=== PATIENT | female | born 1955 | race Caucasian/White ===

== ENCOUNTER → 2016-12-17 | Outpatient (CLI) | payer OTHER ==
--- NOTE | 2016-12-17 18:03 | MG ---
Examination: Bilateral screening mammogram. Clinical history: Routine screening. Technique: Digital CC and MLO views of both breasts were obtained. Computer aided detection analysis was performed and used during the interpretation. Comparison: 12/22/2012. Findings: The breasts are composed of scattered fibroglandular densities. Benign-appearing calcifications are n oted in the breasts bilaterally. Skin moles are present overlying the right breast. No suspicious mass, area of architectural distortion or suspicious cluster of microcalcifications is noted. Impression: 1. No mammographic evidence of malignancy. BI-RADS category 2-benign findings. Recommend routine annual screening mammogram. Diagnostic CAD was utilized and reviewed. * 0 (ZERO) - ASSESSMENT INCOMPLETE; ADDITIONAL IMAGING IS NEEDED. * 0C - ASSESSMENT INCOMPLETE, NEEDS ADDITIONAL IMAGING EVALUATION AND/OR PRIOR MAMMOGRAMS FOR COMPARI SON. * 1/1 (ONE) - NEGATIVE. * 2/II (TWO) - BENIGN FINDINGS. * 3/III (THREE) - PROBABLY BENIGN FINDING; SHORT INTERVAL FOLLOW-UP SUGGESTED. * 4/IV (FOUR) - SUSPICIOUS ABNORMALITY; BIOPSY SHOULD BE CONSIDERED. * 5/V - HIGHLY SUSPICIOUS OF MALIGNANCY; BIOPSY SHOULD BE PERFORMED. * 6/ - KNOWN BIOPSY PROVEN MALIGNANCY-APPROPRIATE ACTION SHOULD BE TAKEN. A NEGATIVE X-RAY REPORT SHOULD NOT DELAY BIOPSY IF A DOMINANT OR CLINICALLY SUSPICIOUS MASS IS PRESENT; 4 TO 8 PERCENT OF CANCERS ARE NOT IDENTIFIED BY X-RAY. A NEGATIVE REPORT MAY REINFORCE THE CLINICAL IMPRESSION. ADENOSIS AND DENSE BREASTS MAY OBSCURE AN UNDERLYING NEOPLASM. Reported By:
== END ==
LOC: RAD 15:16
PROVIDERS: ATTEND Obstetrics & Gynecology Obstetrics
DX: Z12.31 Encounter for screening mammogram for malignant neoplasm of breast (principal)
CPT/HCPCS: 77067

== ENCOUNTER → 2017-08-13 | Outpatient (CLI) | payer SELFPAY ==
--- NOTE | 2017-08-13 12:13 | CT ---
Examination: CT of the abdomen and pelvis without contrast. Clinical History: Unspecified renal cough, left lower quadrant pain and left flank pain. Technique: Multiple axial images were obtained from the lung bases down to the pubic symphysis. No or al or intravenous contrast was administered. Dose reduction techniques including automated exposure c ontrol (AEC) and adjustment of mA and kV were utilized. Comparison: None available. Findings: The visualized portion of the lung bases is unremarkable. No acute urinary tract obstruction is noted. No renal, ureteral or bladder calculus is noted. The kid neys are normal in appearance, with no renal mass or hydronephrosis noted. The liver, spleen, pancreas, gallbladder and adrenal glands are normal in appearance. The abdominal aorta is mildly calcified and tortuous, but is normal in caliber. The bowel gas pattern is non-obstructive. There is no free air. There are scattered diverticula associated with the colon, with stranding of the mesenteric fat seen adjacent to the sigmoid portion of the colon, consistent with an acute diverticulitis. No associated diverticular abscess is identified. The small bowel is grossly unremarkable. The appendix is not visualized. The bladder is within normal limits. The uterus is surgically absent. No pelvic mass or fluid collection is noted. There is a mild lumbar scoliosis seen convex to the right, which may be positional in nature. Degener ative changes are noted in the spine. No acute osseous abnormality is noted. Impression: 1. Acute diverticulitis involving the sigmoid portion of the colon, as described above. No associated diverticular abscess is noted. 2. No acute urinary tract obstruction is noted. 3. There are postsurgical changes from a prior hysterectomy. Reported By:
== END | disposition home or self-care (01) | DRG 694 ==
LOC: RAD 11:20
PROVIDERS: ATTEND Obstetrics & Gynecology Obstetrics
DX: N23 Unspecified renal colic (principal); K57.32 Diverticulitis of large intestine without perforation or abscess without bleeding
CPT/HCPCS: 74176

== ENCOUNTER → 2017-08-17 | Outpatient (CLI) | payer SELFPAY ==
[2017-08-17 11:09] LABS: BASOPHILS # (AUTO) 0.1 X10^3/uL (0.0-0.1); BASOPHILS % (AUTO) 0.8 % (0.2-1.0); EOSINOPHILS # (AUTO) 0.1 x10^3/uL (0.0-0.2); EOSINOPHILS % (AUTO) 1.1 % (0.9-2.9); HEMATOCRIT 38.4 % (36.0-47.0); HEMOGLOBIN 13.4 g/dL (12.0-16.0); LYMPHOCYTES # (AUTO) 2.1 X10^3/uL (1.3-2.9); LYMPHOCYTES % (AUTO) 34.5 % (21.0-51.0); MEAN CORPUSCULAR HEMOGLOBIN 32.1 pg (27.0-34.0); MEAN CORPUSCULAR HGB CONC 34.9 g/dL (33.0-35.0); MEAN CORPUSCULAR VOLUME 92.1 fL (80.0-100.0); MEAN PLATELET VOLUME 8.1 fL (7.4-11.0); MONOCYTES # (AUTO) 0.4 x10^3/uL (0.3-0.8); MONOCYTES % (AUTO) 5.8 % (0.0-13.0); NEUTROPHILS # (AUTO) 3.5 x10^3/uL (2.2-4.8); NEUTROPHILS % (AUTO) 57.8 % (42.0-75.0); PLATELET COUNT 302 X10^3/uL (150.0-450.0); RED BLOOD COUNT 4.17 X10^6/uL (3.5-5.4); WHITE BLOOD COUNT 6.1 X10^3/uL (3.6-10.0)
[2017-08-17 11:30] LABS: ALANINE AMINOTRANSFERASE 21 Units/L (12-78); ALBUMIN 3.8 g/dL (3.4-5.0); ALKALINE PHOSPHATASE 69 Units/L (46-116); ASPARTATE AMINO TRANSFERASE 20 Units/L (15-37); BLOOD UREA NITROGEN 13 mg/dL (7-18); CALCIUM 9.4 mg/dL (8.5-10.1); CHLORIDE 101 mmol/L (98-107); COR NA(FOR HYPERGLY) 137 mmol/L (136-145); CREATININE 0.94 mg/dL (0.55-1.02); FREE T4 (FREE THYROXINE) 1.22 ng/dL (0.76-1.46); SODIUM 137 mmol/L (136-145); T4 (THYROXINE) 8.5 ug/dL (4.7-13.3); TOTAL PROTEIN 8.1 g/dL (6.4-8.2); TSH (3RD GENERATION) 1.755 uIU/mL (0.358-3.74); eGFR BLACK RACES > 60 (>60); eGFR NON BLACK RACES > 60 (>60)
[2017-08-17 11:44] LABS: ERYTHROCYTE SEDIMENTATION RATE 48 MM/HOUR (0-20)
== END ==
LOC: LAB 10:47
PROVIDERS: ATTEND Psychiatry & Neurology Neurology
DX: N63.21 Unspecified lump in the left breast, upper outer quadrant (principal); R10.32 Left lower quadrant pain; Z87.39 Personal history of other diseases of the musculoskeletal system and connective tissue; R70.0 Elevated erythrocyte sedimentation rate
CPT/HCPCS: 36415; 80053; 82306; 84436; 84439; 84443; 85025; 85652

== ENCOUNTER 2019-02-09 15:21 | Inpatient (IN) ==
[2019-02-09 15:27] VITALS: BMI 21.7
[2019-02-09] MEDS ORDERED: NS 1000 ML 1,000 ML IV ONE (16:56)
[2019-02-09 17:02] LABS: BILIRUBIN,URINE NEGATIVE (NEGATIVE); BLOOD/HEMOGLOBIN,URINE 5+ (NEGATIVE); GLUCOSE, URINE NEGATIVE (NEGATIVE); KETONES,URINE NEGATIVE (NEGATIVE); LEUKOCYTE ESTERASE ,URINE 3+ (NEGATIVE); NITRITES,URINE NEGATIVE (NEGATIVE); PROTEIN,URINE 3+ (NEGATIVE); UROBILINOGEN,URINE NORMAL (NORMAL)
--- NOTE | 2019-02-09 17:05 | DR.URINEF ---
HPI Time Seen Time Seen by Provider: 02/09/19 16:55 PCP Primary Care Physician: PAULINE DIANA NP Complaint Chief Complaint Doctors Comments: 63yo female presented for dysuria. Pt reports for the past 3wk having LLQ pain that is intermittent and today having worsening dysuria, increase frequency and suprapubic pain that radiates to left flank. Pt reports nausea/chills but denies any fever. Pain is sharp 10/10. She has colonoscopy [address] Davidson and hx of diverticulosis. Chief Complaint:: PT STATES THAT SHE WAS DIAGNOSED WITH DIVERTICULITIS A YEAR AGO. STATES SHE HAS BEEN HURTING 3 WEEKS BUT TODAY THE PAIN GOT WORSE. STATES WHEN SHE PEES IT FEELS LIKE "RAZOR BLADES". STATES THERE IS BLOOD IN HER URINE. Reviewed Nurses Notes Reviewed: Yes Source History Provided: Patient Mode of Arrival Mode of Arrival: Ambulatory Timing Onset of Chief Complaint: 02/09/19 Duration Duration: Constant Duration: Hours and Weeks Context Onset: Spontaneous History of: UTI Quality Pain is: Burning and Sharp Severity Pain: Moderate Location Pain Location: Suprapubic, Left and Flank Associated Signs and Symptoms Associated signs and symptoms: Nausea and Flank Pain PMH PMH Past Medical History: Yes Past Medical History: Hypertension Past Medical History Comment: DIVERTICULITIS Past Surgical History: Yes Surgical History: Hysterectomy Family History History of Family Medical Conditions: No Social History Does patient currently use any type of tobacco product: No Have you used tobacco products in the last 12 months: No Type of Tobacco Use: None Does any household member use tobacco: No Alcohol Use: None Do you use any recreational Drugs:: No Lives With: Family Lives Where: Home infectious screening In the last 2 months have you had wt loss of >10#?: NO Have you had fever, night sweats or hemotysis?: No Have you traveled outside the country in the last 6 months?: No Isolation: Standard ROS Review of Systems Constitutional: Chills; negative Fever, Weakness, Fatigue and Loss of Appetite Eyes: negative Blurred Vision ENTM: negative Nose Congestion Respiratoy: negative Short of Breath Cardiovascular: negative Chest Pain Gastrointestinal/Abdominal: Abdominal Pain, Nausea and Vomiting Genitourinary: Dysuria, Frequency and Hematuria Neurological: negative Weakness Musculoskeletal: negative Muscle Pain Integumentary: negative Rash Hematologic/Lymphatic: negative Lymphadenopathy Endocrine: negative Decreased Appetite Psychiatric: negative Depression All Other Systems: Reviewed and Negative PE Vital Signs Vitals: Temperature 98.6 F Pulse Rate 78 Respiratory Rate 18 Blood Pressure 138/67 O2 Sat by Pulse Oximetry 100 General Limitations: No Limitations Head Head Exam: Normal Inspection, Atraumatic and Normocephalic Eyes Eye exam: Normal Appearance, PERRL and EOMI; negative Scleral Icterus ENT ENT Exam: Normal Exam, Normal Oropharynx, Normal External Ear Exam and Mucous Membranes Moist Neck Neck Exam: Normal Inspection and Full ROM Respiratory Respiratory Exam: Normal Lung Sounds Bilat; negative Respiratory Distress Respiratory Exam: Bilateral: Clear to Auscultation Cardiovascular Cardiovascular Exam: Regular Rate and Normal Rhythm Abdominal Exam Abdominal Exam: Normal Inspection, Normal Bowel Sounds, Soft and Tenderness; negative Distention and Guarding Abdominal Tenderness: LLQ and Suprapubic Extremities Extremities Exam: Normal Inspection, Full ROM and Normal Capillary Refill; negative Edema Back Back Exam: Normal Inspection, Full ROM and (L) CVA Tenderness Neurologic Neurological Exam: Alert, Oriented X3, Normal Gait and Reflexes Normal; negative Motor Sensory Deficit Psychiatric Psychiatric Exam: Normal Affect and Normal Mood Skin Skin Exam: Warm, Dry, Intact and Normal Color MDM Additional Information Obtained Additional Information Obtained From: Old Records Differential Diagnosis Differential Diagnosis: Pyelonephritis, Urolithiasis and UTI COURSE Reevaluation 1st: Improved Consultation Consultation Comments: spoke to Dr. Johnson for admission, agreed with plan and will see in hospital. Education/Counseling Education/Counseling: Patient, Education and Counseling Educated On: Treatment, Diagnosis, Prognosis and Needs for Follow Up (pcp) ROR Labs Reviewed Laboratory Results Reviewed?: Yes Result Diagrams: 02/09/19 17:00 02/09/19 17:00 Laboratory: WBC 16.3 X10^3/uL (3.6-10.0) H 02/09/19 17:00 RBC 4.61 X10^6/uL (3.5-5.4) 02/09/19 17:00 Hgb 14.8 g/dL (12.0-16.0) 02/09/19 17:00 Hct 43.0 % (36.0-47.0) 02/09/19 17:00 MCV 93.3 fL (80.0-100.0) 02/09/19 17:00 MCH 32.1 pg (27.0-34.0) 02/09/19 17:00 MCHC 34.4 g/dL (33.0-35.0) 02/09/19 17:00 RDW 13.2 % (11.6-16.5) 02/09/19 17:00 Plt Count 265 X10^3/uL (150.0-450.0) 02/09/19 17:00 Plt Count Comment Adequate (ADEQUATE) 02/09/19 17:00 MPV 8.0 fL (7.4-11.0) 02/09/19 17:00 Neut % (Auto) 80.6 % (42.0-75.0) H 02/09/19 17:00 Lymph % (Auto) 13.4 % (21.0-51.0) L 02/09/19 17:00 [place] % (Auto) 5.3 % (0.0-13.0) 02/09/19 17:00 Eos % (Auto) 0.4 % (0.9-2.9) L 02/09/19 17:00 Baso % (Auto) 0.3 % (0.2-1.0) 02/09/19 17:00 Neut # (Auto) 13.1 x10^3/uL (2.2-4.8) H 02/09/19 17:00 Lymph # (Auto) 2.2 X10^3/uL (1.3-2.9) 02/09/19 17:00 [place] # (Auto) 0.9 x10^3/uL (0.3-0.8) H 02/09/19 17:00 Eos # (Auto) 0.1 x10^3/uL (0.0-0.2) 02/09/19 17:00 Baso # (Auto) 0.0 X10^3/uL (0.0-0.1) 02/09/19 17:00 Absolute Nucleated RBC 0.1 /100WBC 02/09/19 17:00 Plt Morphology Comment Normal (NORMAL) 02/09/19 17:00 RBC Morphology Normal (NORMAL) 02/09/19 17:00 Sodium 138 mmol/L (136-145) 02/09/19 17:00 Corrected Sodium TNP 02/09/19 17:00 Potassium 3.8 mmol/L (3.5-5.1) 02/09/19 17:00 Chloride 100 mmol/L (98-107) 02/09/19 17:00 Carbon Dioxide 26.1 mmol/L (21-32) 02/09/19 17:00 BUN 14 mg/dL (7-18) 02/09/19 17:00 Creatinine 1.01 mg/dL (0.55-1.02) 02/09/19 17:00 Est GFR (MDRD) Af Amer > 60 (>60) 02/09/19 17:00 Est GFR (MDRD) Non-Af 59 (>60) 02/09/19 17:00 Glucose 97 mg/dL (65-99) 02/09/19 17:00 Calcium 10.7 mg/dL (8.5-10.1) H 02/09/19 17:00 Specimen Type Clean catch urine 02/09/19 16:53 Urine Color [place] (YELLOW) 02/09/19 16:53 Urine Appearance Cloudy (CLEAR) 02/09/19 16:53 Urine pH 8.0 (5.0 - 8.0) 02/09/19 16:53 Ur Specific [place] 1.015 (1.000-1.030) 02/09/19 16:53 Urine Protein 3+ (NEGATIVE) 02/09/19 16:53 Urine Glucose (UA) Negative (NEGATIVE) 02/09/19 16:53 Urine Ketones Negative (NEGATIVE) 02/09/19 16:53 Urine Occult Blood 5+ (NEGATIVE) 02/09/19 16:53 Urine Nitrite Negative (NEGATIVE) 02/09/19 16:53 Urine Bilirubin Negative (NEGATIVE) 02/09/19 16:53 Urine Urobilinogen Normal (NORMAL) 02/09/19 16:53 Ur Leukocyte Esterase 3+ (NEGATIVE) 02/09/19 16:53 Urine RBC Tntc /HPF (0-3) A 02/09/19 16:53 Urine WBC 30-50 /HPF (0-5) A 02/09/19 16:53 Ur Squamous Epith Cells Rare /HPF (NEGATIVE) 02/09/19 16:53 Urine Bacteria Trace /HPF (NEGATIVE) 02/09/19 16:53 Ur Culture Indicated? Yes/culture set up 02/09/19 16:53 Other Results Comments: WBC 16K with left shift, Hb 14.8 UA WBC 30-50 RBC TNTC BMP Cr 1.[address] a/p: Cystitis/sigmoid diverticulitis XRAY XRAY Interpreted by: Radiologist Opioid Opioid Risk Tool Total: 0 Total Score Risk Category: Low Risk Copyright: Raymond FLORES predicting aberrant behaviors Diagnosis Discharge Problem: Urinary tract infection with hematuria, Diverticulitis of sigmoid colon, Hypercalcemia Instructions Forms: Excuse From Work Patient Portal ADDITIONAL NOTES Additional Notes Additional Notes: I have personally reviewed your medications, lab results, imaging and time was spent discussion results. Patient educated on their health issue. They verbalized their understanding and agreed with plan of care. Condition: Stable Disposition: Admission
[2019-02-09 17:11] LABS: APPEARANCE,URINE CLOUDY (CLEAR); COLOR,URINE PINK (YELLOW); RBC,URINE TNTC /HPF (0-3); SQUAMOUS EPITHELIAL CELL,UR RARE /HPF (NEGATIVE)
[2019-02-09 17:12] LABS: BACTERIA,URINE TRACE /HPF (NEGATIVE)
[2019-02-09] MEDS ORDERED: ROCEPHIN VIAL 1 GRAM IM ONE (17:17)
[2019-02-09 17:18] LABS: BASOPHILS % (AUTO) 0.3 % (0.2-1.0); EOSINOPHILS # (AUTO) 0.1 x10^3/uL (0.0-0.2); EOSINOPHILS % (AUTO) 0.4 % (0.9-2.9); HEMOGLOBIN 14.8 g/dL (12.0-16.0); LYMPHOCYTES # (AUTO) 2.2 X10^3/uL (1.3-2.9); LYMPHOCYTES % (AUTO) 13.4 % (21.0-51.0); MEAN CORPUSCULAR HEMOGLOBIN 32.1 pg (27.0-34.0); MEAN CORPUSCULAR HGB CONC 34.4 g/dL (33.0-35.0); MEAN CORPUSCULAR VOLUME 93.3 fL (80.0-100.0); MONOCYTES # (AUTO) 0.9 x10^3/uL (0.3-0.8); MONOCYTES % (AUTO) 5.3 % (0.0-13.0); NEUTROPHILS # (AUTO) 13.1 x10^3/uL (2.2-4.8); NEUTROPHILS % (AUTO) 80.6 % (42.0-75.0); PLATELET COUNT 265 X10^3/uL (150.0-450.0); RED BLOOD COUNT 4.61 X10^6/uL (3.5-5.4); RED CELL DISTRIBUTION WIDTH 13.2 % (11.6-16.5); WHITE BLOOD COUNT 16.3 X10^3/uL (3.6-10.0)
[2019-02-09] MEDS ORDERED: NS 1000 ML 1,000 ML ONE (17:19)
[2019-02-09] MEDS ORDERED: ROCEPHIN VIAL 1 GRAM ONE (17:19)
[2019-02-09] MEDS ORDERED: NS 100 ML IV + SPIKE MINIBAG* 100 ML IV ONE (17:19)
[2019-02-09 17:21] LABS: BLOOD UREA NITROGEN 14 mg/dL (7-18); CALCIUM 10.7 mg/dL (8.5-10.1); CARBON DIOXIDE 26.1 mmol/L (21-32); CHLORIDE 100 mmol/L (98-107); CREATININE 1.01 mg/dL (0.55-1.02); SODIUM 138 mmol/L (136-145); eGFR NON BLACK RACES 59 (>60)
[2019-02-09 17:38] LABS: PLATELET MORPHOLOGY COMMENT NORMAL (NORMAL)
[2019-02-09] MEDS ORDERED: MORPHINE SULFATE INJ 4 MG IVP ONE (17:43)
[2019-02-09] MEDS ORDERED: ZOFRAN INJ 4 MG VIAL IVP ONE (17:43)
[2019-02-09] MEDS ORDERED: ROCEPHIN VIAL 1 GRAM 1 G in NS 100 ML IV + SPIKE MINIBAG* 100 ML IV ONE (18:01)
[2019-02-09] MEDS ORDERED: ZOFRAN INJ 4 MG VIAL ONE (18:02)
[2019-02-09] MEDS ORDERED: MORPHINE SULFATE INJ 4 MG ONE (18:03)
--- NOTE | 2019-02-09 18:30 | CT ---
CT ABDOMEN AND PELVIS WITH IV CONTRAST CLINICAL HISTORY: 63-year-old female with severe abdominal pain and UTI. COMPARISON: CT abdomen and pelvis 08/13/2017. TECHNIQUE: Multiple contiguous axial images of the abdomen and pelvis were obtained following the administration of IV contrast. Coronal and sagittal reformatted imaging was submitted. Dose reduction techniques including Automated Exposure Control (AEC) and adjustment of mA and kV were utilized. FINDINGS: The lung bases are clear without pulmonary nodules, masses, or pleural fluid collections. The inferior imaged mediastinum and heart is normal in size and there is no pericardial effusion. Chronic hepatomegaly without mass lesion or biliary ductal dilatation. No hepatic steatosis. Spleen, pancreas and gallbladder are unremarkable. The adrenal glands are normal bilaterally. Stable bilateral simple renal cysts. The kidneys perfuse in a normal fashion and the ureters run in an unobstructed course to a moderately distended urinary bladder. No nephroureterolithiasis or hydroureteronephrosis. Bladder is diffusely thick-walled and mildly inflamed with enhancing mucosa. Status post hysterectomy. Vaginal cuff and adnexa unremarkable. Multiple pelvic phleboliths. Appendix not visualized, no pericecal inflammatory change. Short segment of circumferential bowel wall thickening with mucosal enhancement surrounding inflammation of the proximal sigmoid colon in the setting of diverticular disease without free air free fluid. The remaining bowel is without obstruction or inflammation. There are no pathologically enlarged lymph nodes in the abdomen or pelvis. The arteriovascular structures are within normal limits. Soft tissues are normal. The osseous structures are intact without fracture or malalignment. IMPRESSION: 1. It should be noted that definitive exclusion of pyelonephritis requires delayed imaging. Otherwise no evidence of pyelonephritis, correlate clinically. 2. Diffuse bladder wall thickening and inflammation with mucosal enhancement consistent with cystitis in a patient with UTI. Correlate clinically. 3. Sigmoid diverticulitis, uncomplicated without perforation or abscess. 4. Other chronic findings as above. Reported By:
[2019-02-09] MEDS ORDERED: FLAGYL IV PREMIX 500 MG BAG 500 MG/100 ML BAG IV ONE ×2 (18:56→19:00)
[2019-02-09] MEDS ORDERED: ZESTRIL TAB 5 MG PO SCH (20:13)
[2019-02-09] MEDS ORDERED: ROCEPHIN VIAL 1 GRAM 1 G in NS 100 ML IV + SPIKE MINIBAG* 100 ML IV SCH (21:00)
[2019-02-09] MEDS ORDERED: FLAGYL IV PREMIX 500 MG BAG 500 MG/100 ML BAG IV SCH (21:00)
[2019-02-09] MEDS: ZESTRIL TAB 5 MG PO SCH (21:31)
[2019-02-09] MEDS: NS 1000 ML 1,000 ML IV SCH (21:33)
[2019-02-09] MEDS: TYLENOL 325 MG TAB PO PRN (22:30)
[2019-02-10] MEDS ORDERED: NORCO 5/325 MG TAB ONE (02:41)
[2019-02-10] MEDS: NORCO 5/325 MG TAB PO PRN ×2 (02:41→08:12)
[2019-02-10 05:44] LABS: BASOPHILS % (AUTO) 0.3 % (0.2-1.0); EOSINOPHILS # (AUTO) 0.1 x10^3/uL (0.0-0.2); EOSINOPHILS % (AUTO) 1.7 % (0.9-2.9); HEMATOCRIT 36.3 % (36.0-47.0); LYMPHOCYTES # (AUTO) 2.6 X10^3/uL (1.3-2.9); LYMPHOCYTES % (AUTO) 29.9 % (21.0-51.0); MEAN CORPUSCULAR HEMOGLOBIN 32.5 pg (27.0-34.0); MEAN CORPUSCULAR HGB CONC 34.3 g/dL (33.0-35.0); MEAN CORPUSCULAR VOLUME 94.8 fL (80.0-100.0); MEAN PLATELET VOLUME 7.7 fL (7.4-11.0); MONOCYTES # (AUTO) 0.7 x10^3/uL (0.3-0.8); MONOCYTES % (AUTO) 7.5 % (0.0-13.0); NEUTROPHILS # (AUTO) 5.3 x10^3/uL (2.2-4.8); NEUTROPHILS % (AUTO) 60.6 % (42.0-75.0); PLATELET COUNT 219 X10^3/uL (150.0-450.0); RED BLOOD COUNT 3.83 X10^6/uL (3.5-5.4); RED CELL DISTRIBUTION WIDTH 13.4 % (11.6-16.5); WHITE BLOOD COUNT 8.7 X10^3/uL (3.6-10.0)
[2019-02-10 05:51] LABS: HEMOGLOBIN 12.4 g/dL (12.0-16.0)
[2019-02-10 05:54] LABS: BLOOD UREA NITROGEN 11 mg/dL (7-18); CALCIUM 8.9 mg/dL (8.5-10.1); CARBON DIOXIDE 27.9 mmol/L (21-32); CHLORIDE 106 mmol/L (98-107); CREATININE 1.03 mg/dL (0.55-1.02); SODIUM 140 mmol/L (136-145); eGFR NON BLACK RACES 58 (>60)
[2019-02-10] MEDS: FLAGYL IV PREMIX 500 MG BAG 500 MG/100 ML BAG IV SCH ×3 (06:23→22:00)
[2019-02-10] MEDS: ROCEPHIN VIAL 1 GRAM 1 G in NS 100 ML IV + SPIKE MINIBAG* 100 ML IV SCH (09:12)
[2019-02-10] MEDS: NS 1000 ML 1,000 ML IV SCH ×3 (09:14→22:00)
[2019-02-10] MEDS ORDERED: OFIRMEV IV 1000 MG VIAL 500 MG/50 ML VIAL IV PRN (10:26)
[2019-02-10] MEDS: TYLENOL 325 MG TAB PO PRN ×2 (13:58→21:35)
[2019-02-10] MEDS: COLACE CAP 100 MG PO SCH (13:59)
--- NOTE | 2019-02-10 16:23 | DR.H&P ---
H&P - History & Physical for Day of: H&P Date: 02/09/19 - Chief Complaint Chief Complaint: ABDOMINAL PAIN, N/V FEVER - History of Present Illness History of Present Illness: PT IS 63 WF ER ADMISSION AFTER PRESENTING WITH CO ABDOMINAL PAIN, ELEVATED WBC, CT ABD PELVIS REVEALED: Sigmoid diverticulitis, uncomplicated without perforation or abscess. PT ADMITTED FOR TREATMENT OF ACUTE ILLNESS - Past Medical History Past Medical History: Hypertension - Past Surgical History Surgical History: Hysterectomy - Social History Does patient currently use any type of tobacco product: No Have you used tobacco products in the last 12 months: No Type of Tobacco Use: None Does any household member use tobacco: No Alcohol Use: None Drug Use: None - Medications Home Medications: No Known Drug Allergies Allergy (Verified 02/03/18 07:30) - Review of Systems Constitutional: Weakness ENT: No Symptoms Reported Cardiovascular: No Symptoms Reported Gastrointestinal: Nausea, Vomiting, Abdominal Pain Genitourinary: Hematuria Musculoskeletal: Back Pain Skin: No Symptoms Reported Neurological: No Symptoms Reported - Physical Exam Vital Signs: Temperature 98.6 F Pulse Rate [Left Brachial] 65 Pulse Rate 78 Respiratory Rate 18 Blood Pressure [Left Arm] 122/68 Blood Pressure 138/67 O2 Sat by Pulse Oximetry 99 Oriented: Normal Eyes: Normal Ear: Normal Nose: Normal Throat: Normal Respiratory: Clear Throughout Cardiovascular: Normal : Normal Auscultation: Bowel Sounds: Normal Palpation: Normal Tenderness: Diffuse, LUQ, LLQ, Epigastric Skin: Normal Musculoskeletal: Normal Psychiatric: Anxiety Affect: Anxious Speech Pattern: Clear, Appropriate - Assessment/Plan (1) Diverticulitis of sigmoid colon Status: Acute Plan: ADMIT, IV ATBX THERAPY. IV PAIN CONTROL, IV HYDRATION. AM LABS, CONSULT DR BRUNNER (2) Hypercalcemia Status: Acute (3) Urinary tract infection with hematuria Qualifiers: Urinary tract infection type: acute cystitis Qualified Code(s): N30.01 - Acute cystitis with hematuria Status: Acute - Allergies Allergies/Adverse Reactions: Allergies Allergy/AdvReac Type Severity Reaction Status Date / Time No Known Drug Allergies Allergy Verified 02/03/18 07:30
[2019-02-10] MEDS: ZESTRIL TAB 5 MG PO SCH (21:37)
[2019-02-11] MEDS ORDERED: ZOFRAN TAB 4 MG SL PRN (04:03)
[2019-02-11] MEDS ORDERED: ZOFRAN TAB 4 MG ONE (04:10)
[2019-02-11 05:43] LABS: BASOPHILS # (AUTO) 0.1 X10^3/uL (0.0-0.1); BASOPHILS % (AUTO) 0.9 % (0.2-1.0); EOSINOPHILS # (AUTO) 0.2 x10^3/uL (0.0-0.2); EOSINOPHILS % (AUTO) 2.7 % (0.9-2.9); HEMATOCRIT 36.6 % (36.0-47.0); HEMOGLOBIN 12.6 g/dL (12.0-16.0); LYMPHOCYTES # (AUTO) 2.4 X10^3/uL (1.3-2.9); LYMPHOCYTES % (AUTO) 30.5 % (21.0-51.0); MEAN CORPUSCULAR HEMOGLOBIN 32.8 pg (27.0-34.0); MEAN CORPUSCULAR HGB CONC 34.4 g/dL (33.0-35.0); MEAN CORPUSCULAR VOLUME 95.5 fL (80.0-100.0); MEAN PLATELET VOLUME 8.7 fL (7.4-11.0); MONOCYTES # (AUTO) 0.5 x10^3/uL (0.3-0.8); MONOCYTES % (AUTO) 6.2 % (0.0-13.0); NEUTROPHILS # (AUTO) 4.7 x10^3/uL (2.2-4.8); NEUTROPHILS % (AUTO) 59.7 % (42.0-75.0); PLATELET COUNT 188 X10^3/uL (150.0-450.0); RED BLOOD COUNT 3.83 X10^6/uL (3.5-5.4); RED CELL DISTRIBUTION WIDTH 13.3 % (11.6-16.5); WHITE BLOOD COUNT 7.8 X10^3/uL (3.6-10.0)
[2019-02-11 05:57] LABS: PLATELET MORPHOLOGY COMMENT NORMAL (NORMAL)
[2019-02-11 05:58] LABS: ALANINE AMINOTRANSFERASE 16 Units/L (12-78); ALBUMIN 3.4 g/dL (3.4-5.0); ALKALINE PHOSPHATASE 66 Units/L (46-116); ASPARTATE AMINO TRANSFERASE 18 Units/L (15-37); BLOOD UREA NITROGEN 9 mg/dL (7-18); CALCIUM 8.8 mg/dL (8.5-10.1); CARBON DIOXIDE 24.1 mmol/L (21-32); CHLORIDE 105 mmol/L (98-107); CREATININE 0.87 mg/dL (0.55-1.02); SODIUM 139 mmol/L (136-145); TOTAL PROTEIN 6.9 g/dL (6.4-8.2); eGFR NON BLACK RACES > 60 (>60)
[2019-02-11] MEDS: FLAGYL IV PREMIX 500 MG BAG 500 MG/100 ML BAG IV SCH ×3 (06:01→21:10)
[2019-02-11] MEDS: NORCO 5/325 MG TAB PO PRN ×2 (06:23→13:01)
[2019-02-11] MEDS ORDERED: MILK OF MAGNESIA PO PRN (08:17)
[2019-02-11] MEDS: COLACE CAP 100 MG PO SCH (09:23)
[2019-02-11] MEDS: ROCEPHIN VIAL 1 GRAM 1 G in NS 100 ML IV + SPIKE MINIBAG* 100 ML IV SCH (09:23)
--- NOTE | 2019-02-11 10:24 | DR.PROGNOT ---
Hospital Progress Notes - Progress Note for Day of: Progress Note Date: 02/11/19 - Chief Complaint Chief Complaint: less abdominal pain today . no nausea or vomiting . WBC is normal and Pt is afebrile . - Past Medical Family Social History Past Med/Fam/Surg Hx: No changes since H&P Allergies: Allergies No Known Drug Allergies Allergy (Verified 02/03/18 07:30) - Review Of Systems ROS: No change since H&P - Vital Signs Vital Signs: Temperature 98.6 F Pulse Rate [Left Brachial] 77 Pulse Rate 78 Respiratory Rate 18 Blood Pressure [Left Arm] 104/56 Blood Pressure 138/67 O2 Sat by Pulse Oximetry 96 - Physical Exam Oriented: Normal Eyes: Normal Ear: Normal Nose: Normal Throat: Normal Cardiovascular: Normal : Normal GI:Auscultation: Normal GI:Palpation: Normal GI: Tenderness: LLQ (LLQ tendernes , no rebound .. BS+ ) Skin: Normal Musculoskeletal: Normal Psychiatric: Anxiety Affect: Anxious Speech Pattern: Clear, Appropriate - Laboratory and Diagnostics Result Diagrams: 02/11/19 05:23 02/11/19 05:23 Labs: 02/09/19 16:53 Urine,Clean Catch Urine Culture - Final Laboratory WBC 7.8 X10^3/uL (3.6-10.0) 02/11/19 05:23 RBC 3.83 X10^6/uL (3.5-5.4) 02/11/19 05:23 Hgb 12.6 g/dL (12.0-16.0) 02/11/19 05:23 Hct 36.6 % (36.0-47.0) 02/11/19 05:23 MCV 95.5 fL (80.0-100.0) 02/11/19 05:23 MCH 32.8 pg (27.0-34.0) 02/11/19 05:23 MCHC 34.4 g/dL (33.0-35.0) 02/11/19 05:23 RDW 13.3 % (11.6-16.5) 02/11/19 05:23 Plt Count 188 X10^3/uL (150.0-450.0) 02/11/19 05:23 Plt Count Comment Adequate (ADEQUATE) 02/11/19 05:23 MPV 8.7 fL (7.4-11.0) 02/11/19 05:23 Neut % (Auto) 59.7 % (42.0-75.0) 02/11/19 05:23 Lymph % (Auto) 30.5 % (21.0-51.0) 02/11/19 05:23 [place] % (Auto) 6.2 % (0.0-13.0) 02/11/19 05:23 Eos % (Auto) 2.7 % (0.9-2.9) 02/11/19 05:23 Baso % (Auto) 0.9 % (0.2-1.0) 02/11/19 05:23 Neut # (Auto) 4.7 x10^3/uL (2.2-4.8) 02/11/19 05:23 Lymph # (Auto) 2.4 X10^3/uL (1.3-2.9) 02/11/19 05:23 [place] # (Auto) 0.5 x10^3/uL (0.3-0.8) 02/11/19 05:23 Eos # (Auto) 0.2 x10^3/uL (0.0-0.2) 02/11/19 05:23 Baso # (Auto) 0.1 X10^3/uL (0.0-0.1) 02/11/19 05:23 Absolute Nucleated RBC 0.0 /100WBC 02/11/19 05:23 Plt Clumps, EDTA Rare 02/11/19 05:23 Plt Morphology Comment Normal (NORMAL) 02/11/19 05:23 RBC Morphology Normal (NORMAL) 02/11/19 05:23 Sodium 139 mmol/L (136-145) 02/11/19 05:23 Corrected Sodium TNP 02/11/19 05:23 Potassium 4.0 mmol/L (3.5-5.1) 02/11/19 05:23 Chloride 105 mmol/L (98-107) 02/11/19 05:23 Carbon Dioxide 24.1 mmol/L (21-32) 02/11/19 05:23 BUN 9 mg/dL (7-18) 02/11/19 05:23 Creatinine 0.87 mg/dL (0.55-1.02) 02/11/19 05:23 Est GFR (MDRD) Af Amer > 60 (>60) 02/11/19 05:23 Est GFR (MDRD) Non-Af > 60 (>60) 02/11/19 05:23 Glucose 96 mg/dL (65-99) 02/11/19 05:23 Calcium 8.8 mg/dL (8.5-10.1) 02/11/19 05:23 Corrected Calcium TNP 02/11/19 05:23 Total Bilirubin 0.40 mg/dL (0.2-1.0) 02/11/19 05:23 AST 18 Units/L (15-37) 02/11/19 05:23 ALT 16 Units/L (12-78) 02/11/19 05:23 Alkaline Phosphatase 66 Units/L (46-116) 02/11/19 05:23 Total Protein 6.9 g/dL (6.4-8.2) 02/11/19 05:23 Albumin 3.4 g/dL (3.4-5.0) 02/11/19 05:23 Globulin 3.5 g/dL (2.5-4.5) 02/11/19 05:23 Albumin/Globulin Ratio 1.0 Ratio (1.1-2.1) L 02/11/19 05:23 Specimen Type Clean catch urine 02/09/19 16:53 Urine Color [place] (YELLOW) 02/09/19 16:53 Urine Appearance Cloudy (CLEAR) 02/09/19 16:53 Urine pH 8.0 (5.0 - 8.0) 02/09/19 16:53 Ur Specific [place] 1.015 (1.000-1.030) 02/09/19 16:53 Urine Protein 3+ (NEGATIVE) 02/09/19 16:53 Urine Glucose (UA) Negative (NEGATIVE) 02/09/19 16:53 Urine Ketones Negative (NEGATIVE) 02/09/19 16:53 Urine Occult Blood 5+ (NEGATIVE) 02/09/19 16:53 Urine Nitrite Negative (NEGATIVE) 02/09/19 16:53 Urine Bilirubin Negative (NEGATIVE) 02/09/19 16:53 Urine Urobilinogen Normal (NORMAL) 02/09/19 16:53 Ur Leukocyte Esterase 3+ (NEGATIVE) 02/09/19 16:53 Urine RBC Tntc /HPF (0-3) A 02/09/19 16:53 Urine WBC 30-50 /HPF (0-5) A 02/09/19 16:53 Ur Squamous Epith Cells Rare /HPF (NEGATIVE) 02/09/19 16:53 Urine Bacteria Trace /HPF (NEGATIVE) 02/09/19 16:53 Ur Culture Indicated? Yes/culture set up 02/09/19 16:53 - Assessment and Plan 1: subsiding acute sigmoid diverticulitis . to start clear liquid today. could be discharged tomorrow on oral ATB and stay on soft diet . will follow in 2 weeks . - Problem Patient Problems: Patient Problems Urinary tract infection with hematuria (Acute) N39.0, R31.9 Diverticulitis of sigmoid colon (Acute) K57.32 Hypercalcemia (Acute) E83.52
[2019-02-11] MEDS ORDERED: DEMEROL INJ IVP PRN (11:36)
[2019-02-11] MEDS: NS 1000 ML 1,000 ML IV SCH (11:39)
[2019-02-11] MEDS: CLARITIN PO SCH (12:52)
[2019-02-11] MEDS: FLONASE NASAL SPRAY ENOSTRIL SCH ×2 (12:53→21:09)
--- NOTE | 2019-02-11 19:56 | PCM.PROG ---
Progress Note - Progress Note for Day of Date of Exam: 02/10/19 - Subjective Subjective: PT IS 63 WF ER ADMISSION WITH ACUTE CYSTITIS AND ACUTE DIVERTICULITIS. PT HAD UC OBTAINED ON ADMISSION. PT IS CURRENTLY ON GENTLE IV HYDRATION WITH PAIN AND NAUSEA CONTROL. DR BRUNNER IS CONSULTING. PT IS NPO AT THIS TIME. PT CONTINUES WITH LLQ AND LEFT FLANK TENDNERESS. WILL CONTINUE IV ATBX THERAPY. - Past Medical Family Social History Past Med/Fam/Surg Hx: No changes since H&P Allergies: Allergies No Known Drug Allergies Allergy (Verified 02/03/18 07:30) - Review of Systems ROS: No change since H&P - Vital Signs and I&O's Vital Signs: Temperature 98.5 F Pulse Rate [Left Brachial] 66 Pulse Rate 78 Respiratory Rate 18 Blood Pressure [Left Arm] 134/68 Blood Pressure 138/67 O2 Sat by Pulse Oximetry 94 Intake and Output: Intake & Output 02/09/19 02/10/19 02/11/19 02/12/19 11:59 11:59 11:59 11:59 Intake Total 1520 / 1520 1720 / 1720 840 / 840 Balance 1520 / 1520 1720 / 1720 840 / 840 - Physical Exam Oriented: Normal Eyes: Normal Ear: Normal Nose: Normal Throat: Normal Respiratory: Normal Cardiovascular: Normal : Normal Auscultation: Bowel Sounds: Normal Tenderness: LLQ (LLQ tendernes , no rebound .. BS+ ) Skin: Normal Musculoskeletal: Normal Psychiatric: Anxiety Affect: Anxious Speech Pattern: Clear, Appropriate - Laboratory and Diagnostics Result Diagrams: 02/11/19 05:23 02/11/19 05:23 Labs: 02/09/19 16:53 Urine,Clean Catch Urine Culture - Final Laboratory WBC 7.8 X10^3/uL (3.6-10.0) 02/11/19 05:23 RBC 3.83 X10^6/uL (3.5-5.4) 02/11/19 05:23 Hgb 12.6 g/dL (12.0-16.0) 02/11/19 05:23 Hct 36.6 % (36.0-47.0) 02/11/19 05:23 MCV 95.5 fL (80.0-100.0) 02/11/19 05:23 MCH 32.8 pg (27.0-34.0) 02/11/19 05:23 MCHC 34.4 g/dL (33.0-35.0) 02/11/19 05:23 RDW 13.3 % (11.6-16.5) 02/11/19 05:23 Plt Count 188 X10^3/uL (150.0-450.0) 02/11/19 05:23 Plt Count Comment Adequate (ADEQUATE) 02/11/19 05:23 MPV 8.7 fL (7.4-11.0) 02/11/19 05:23 Neut % (Auto) 59.7 % (42.0-75.0) 02/11/19 05:23 Lymph % (Auto) 30.5 % (21.0-51.0) 02/11/19 05:23 [place] % (Auto) 6.2 % (0.0-13.0) 02/11/19 05:23 Eos % (Auto) 2.7 % (0.9-2.9) 02/11/19 05:23 Baso % (Auto) 0.9 % (0.2-1.0) 02/11/19 05:23 Neut # (Auto) 4.7 x10^3/uL (2.2-4.8) 02/11/19 05:23 Lymph # (Auto) 2.4 X10^3/uL (1.3-2.9) 02/11/19 05:23 [place] # (Auto) 0.5 x10^3/uL (0.3-0.8) 02/11/19 05:23 Eos # (Auto) 0.2 x10^3/uL (0.0-0.2) 02/11/19 05:23 Baso # (Auto) 0.1 X10^3/uL (0.0-0.1) 02/11/19 05:23 Absolute Nucleated RBC 0.0 /100WBC 02/11/19 05:23 Plt Clumps, EDTA Rare 02/11/19 05:23 Plt Morphology Comment Normal (NORMAL) 02/11/19 05:23 RBC Morphology Normal (NORMAL) 02/11/19 05:23 Sodium 139 mmol/L (136-145) 02/11/19 05:23 Corrected Sodium TNP 02/11/19 05:23 Potassium 4.0 mmol/L (3.5-5.1) 02/11/19 05:23 Chloride 105 mmol/L (98-107) 02/11/19 05:23 Carbon Dioxide 24.1 mmol/L (21-32) 02/11/19 05:23 BUN 9 mg/dL (7-18) 02/11/19 05:23 Creatinine 0.87 mg/dL (0.55-1.02) 02/11/19 05:23 Est GFR (MDRD) Af Amer > 60 (>60) 02/11/19 05:23 Est GFR (MDRD) Non-Af > 60 (>60) 02/11/19 05:23 Glucose 96 mg/dL (65-99) 02/11/19 05:23 Calcium 8.8 mg/dL (8.5-10.1) 02/11/19 05:23 Corrected Calcium TNP 02/11/19 05:23 Total Bilirubin 0.40 mg/dL (0.2-1.0) 02/11/19 05:23 AST 18 Units/L (15-37) 02/11/19 05:23 ALT 16 Units/L (12-78) 02/11/19 05:23 Alkaline Phosphatase 66 Units/L (46-116) 02/11/19 05:23 Total Protein 6.9 g/dL (6.4-8.2) 02/11/19 05:23 Albumin 3.4 g/dL (3.4-5.0) 02/11/19 05:23 Globulin 3.5 g/dL (2.5-4.5) 02/11/19 05:23 Albumin/Globulin Ratio 1.0 Ratio (1.1-2.1) L 02/11/19 05:23 Specimen Type Clean catch urine 02/09/19 16:53 Urine Color [place] (YELLOW) 02/09/19 16:53 Urine Appearance Cloudy (CLEAR) 02/09/19 16:53 Urine pH 8.0 (5.0 - 8.0) 02/09/19 16:53 Ur Specific [place] 1.015 (1.000-1.030) 02/09/19 16:53 Urine Protein 3+ (NEGATIVE) 02/09/19 16:53 Urine Glucose (UA) Negative (NEGATIVE) 02/09/19 16:53 Urine Ketones Negative (NEGATIVE) 02/09/19 16:53 Urine Occult Blood 5+ (NEGATIVE) 02/09/19 16:53 Urine Nitrite Negative (NEGATIVE) 02/09/19 16:53 Urine Bilirubin Negative (NEGATIVE) 02/09/19 16:53 Urine Urobilinogen Normal (NORMAL) 02/09/19 16:53 Ur Leukocyte Esterase 3+ (NEGATIVE) 02/09/19 16:53 Urine RBC Tntc /HPF (0-3) A 02/09/19 16:53 Urine WBC 30-50 /HPF (0-5) A 02/09/19 16:53 Ur Squamous Epith Cells Rare /HPF (NEGATIVE) 02/09/19 16:53 Urine Bacteria Trace /HPF (NEGATIVE) 02/09/19 16:53 Ur Culture Indicated? Yes/culture set up 02/09/19 16:53 - Plan (1) Diverticulitis of sigmoid colon Status: Acute Plan: IV ATBX THERAPY. IV PAIN CONTROL, IV HYDRATION. AM LABS, CONSULT DR BRUNNER (2) Urinary tract infection with hematuria Status: Acute Qualifiers: Urinary tract infection type: acute cystitis Qualified Code(s): N30.01 - Acute cystitis with hematuria (3) Hypercalcemia Status: Acute
--- NOTE | 2019-02-11 19:58 | PCM.PROG ---
Progress Note - Progress Note for Day of Date of Exam: 02/11/19 - Subjective Subjective: PT IS 63 WF ER ADMISSION WITH ACUTE CYSTITIS AND ACUTE DIVERTICULITIS. PT HAD UC OBTAINED ON ADMISSION. PT IS CURRENTLY ON GENTLE IV HYDRATION WITH PAIN AND NAUSEA CONTROL. DR BRUNNER IS CONSULTING. PT HAS IMPROVED ABDOMINAL PAIN THIS AM STATES PAIN IS 3/10. PT CO HEADACHE UNCONTROLLED WITH TYLENOL. PT RELATES TO HER SINUSES. PT IS NPO AT THIS TIME BUT PLAN TO ADVANCE DIET PER DR BRUNNER. - Past Medical Family Social History Past Med/Fam/Surg Hx: No changes since H&P Allergies: Allergies No Known Drug Allergies Allergy (Verified 02/03/18 07:30) - Review of Systems ROS: No change since H&P - Vital Signs and I&O's Vital Signs: Temperature 98.5 F Pulse Rate [Left Brachial] 66 Pulse Rate 78 Respiratory Rate 18 Blood Pressure [Left Arm] 134/68 Blood Pressure 138/67 O2 Sat by Pulse Oximetry 94 Intake and Output: Intake & Output 02/09/19 02/10/19 02/11/19 02/12/19 11:59 11:59 11:59 11:59 Intake Total 1520 / 1520 1720 / 1720 840 / 840 Balance 1520 / 1520 1720 / 1720 840 / 840 - Physical Exam Oriented: Normal Eyes: Normal Ear: Normal Nose: Normal Throat: Normal Respiratory: Normal Cardiovascular: Normal : Normal Auscultation: Bowel Sounds: Normal Tenderness: LLQ (LLQ tendernes , no rebound .. BS+ ) Skin: Normal Musculoskeletal: Normal Psychiatric: Anxiety Affect: Anxious Speech Pattern: Clear, Appropriate - Laboratory and Diagnostics Result Diagrams: 02/11/19 05:23 02/11/19 05:23 Labs: 02/09/19 16:53 Urine,Clean Catch Urine Culture - Final Laboratory WBC 7.8 X10^3/uL (3.6-10.0) 02/11/19 05:23 RBC 3.83 X10^6/uL (3.5-5.4) 02/11/19 05:23 Hgb 12.6 g/dL (12.0-16.0) 02/11/19 05:23 Hct 36.6 % (36.0-47.0) 02/11/19 05:23 MCV 95.5 fL (80.0-100.0) 02/11/19 05:23 MCH 32.8 pg (27.0-34.0) 02/11/19 05:23 MCHC 34.4 g/dL (33.0-35.0) 02/11/19 05:23 RDW 13.3 % (11.6-16.5) 02/11/19 05:23 Plt Count 188 X10^3/uL (150.0-450.0) 02/11/19 05:23 Plt Count Comment Adequate (ADEQUATE) 02/11/19 05:23 MPV 8.7 fL (7.4-11.0) 02/11/19 05:23 Neut % (Auto) 59.7 % (42.0-75.0) 02/11/19 05:23 Lymph % (Auto) 30.5 % (21.0-51.0) 02/11/19 05:23 [place] % (Auto) 6.2 % (0.0-13.0) 02/11/19 05:23 Eos % (Auto) 2.7 % (0.9-2.9) 02/11/19 05:23 Baso % (Auto) 0.9 % (0.2-1.0) 02/11/19 05:23 Neut # (Auto) 4.7 x10^3/uL (2.2-4.8) 02/11/19 05:23 Lymph # (Auto) 2.4 X10^3/uL (1.3-2.9) 02/11/19 05:23 [place] # (Auto) 0.5 x10^3/uL (0.3-0.8) 02/11/19 05:23 Eos # (Auto) 0.2 x10^3/uL (0.0-0.2) 02/11/19 05:23 Baso # (Auto) 0.1 X10^3/uL (0.0-0.1) 02/11/19 05:23 Absolute Nucleated RBC 0.0 /100WBC 02/11/19 05:23 Plt Clumps, EDTA Rare 02/11/19 05:23 Plt Morphology Comment Normal (NORMAL) 02/11/19 05:23 RBC Morphology Normal (NORMAL) 02/11/19 05:23 Sodium 139 mmol/L (136-145) 02/11/19 05:23 Corrected Sodium TNP 02/11/19 05:23 Potassium 4.0 mmol/L (3.5-5.1) 02/11/19 05:23 Chloride 105 mmol/L (98-107) 02/11/19 05:23 Carbon Dioxide 24.1 mmol/L (21-32) 02/11/19 05:23 BUN 9 mg/dL (7-18) 02/11/19 05:23 Creatinine 0.87 mg/dL (0.55-1.02) 02/11/19 05:23 Est GFR (MDRD) Af Amer > 60 (>60) 02/11/19 05:23 Est GFR (MDRD) Non-Af > 60 (>60) 02/11/19 05:23 Glucose 96 mg/dL (65-99) 02/11/19 05:23 Calcium 8.8 mg/dL (8.5-10.1) 02/11/19 05:23 Corrected Calcium TNP 02/11/19 05:23 Total Bilirubin 0.40 mg/dL (0.2-1.0) 02/11/19 05:23 AST 18 Units/L (15-37) 02/11/19 05:23 ALT 16 Units/L (12-78) 02/11/19 05:23 Alkaline Phosphatase 66 Units/L (46-116) 02/11/19 05:23 Total Protein 6.9 g/dL (6.4-8.2) 02/11/19 05:23 Albumin 3.4 g/dL (3.4-5.0) 02/11/19 05:23 Globulin 3.5 g/dL (2.5-4.5) 02/11/19 05:23 Albumin/Globulin Ratio 1.0 Ratio (1.1-2.1) L 02/11/19 05:23 Specimen Type Clean catch urine 02/09/19 16:53 Urine Color [place] (YELLOW) 02/09/19 16:53 Urine Appearance Cloudy (CLEAR) 02/09/19 16:53 Urine pH 8.0 (5.0 - 8.0) 02/09/19 16:53 Ur Specific [place] 1.015 (1.000-1.030) 02/09/19 16:53 Urine Protein 3+ (NEGATIVE) 02/09/19 16:53 Urine Glucose (UA) Negative (NEGATIVE) 02/09/19 16:53 Urine Ketones Negative (NEGATIVE) 02/09/19 16:53 Urine Occult Blood 5+ (NEGATIVE) 02/09/19 16:53 Urine Nitrite Negative (NEGATIVE) 02/09/19 16:53 Urine Bilirubin Negative (NEGATIVE) 02/09/19 16:53 Urine Urobilinogen Normal (NORMAL) 02/09/19 16:53 Ur Leukocyte Esterase 3+ (NEGATIVE) 02/09/19 16:53 Urine RBC Tntc /HPF (0-3) A 02/09/19 16:53 Urine WBC 30-50 /HPF (0-5) A 02/09/19 16:53 Ur Squamous Epith Cells Rare /HPF (NEGATIVE) 02/09/19 16:53 Urine Bacteria Trace /HPF (NEGATIVE) 02/09/19 16:53 Ur Culture Indicated? Yes/culture set up 02/09/19 16:53 - Plan (1) Diverticulitis of sigmoid colon Status: Acute Plan: IV ATBX THERAPY. IV PAIN CONTROL, IV HYDRATION. AM LABS, CONSULT DR BRUNNER (2) Urinary tract infection with hematuria Status: Acute Qualifiers: Urinary tract infection type: acute cystitis Qualified Code(s): N30.01 - Acute cystitis with hematuria (3) Hypercalcemia Status: Acute
[2019-02-11] MEDS: ZESTRIL TAB 5 MG PO SCH (21:10)
[2019-02-12] MEDS: NS 1000 ML 1,000 ML IV SCH (02:03)
[2019-02-12] MEDS: NORCO 5/325 MG TAB PO PRN (02:07)
[2019-02-12 05:20] LABS: BASOPHILS % (AUTO) 0.7 % (0.2-1.0); EOSINOPHILS # (AUTO) 0.2 x10^3/uL (0.0-0.2); EOSINOPHILS % (AUTO) 3.9 % (0.9-2.9); HEMATOCRIT 34.7 % (36.0-47.0); HEMOGLOBIN 12.1 g/dL (12.0-16.0); LYMPHOCYTES # (AUTO) 2.3 X10^3/uL (1.3-2.9); LYMPHOCYTES % (AUTO) 40.8 % (21.0-51.0); MEAN CORPUSCULAR HEMOGLOBIN 33.1 pg (27.0-34.0); MEAN CORPUSCULAR HGB CONC 34.8 g/dL (33.0-35.0); MEAN CORPUSCULAR VOLUME 95.2 fL (80.0-100.0); MEAN PLATELET VOLUME 8.3 fL (7.4-11.0); MONOCYTES # (AUTO) 0.5 x10^3/uL (0.3-0.8); MONOCYTES % (AUTO) 8.1 % (0.0-13.0); NEUTROPHILS # (AUTO) 2.6 x10^3/uL (2.2-4.8); NEUTROPHILS % (AUTO) 46.5 % (42.0-75.0); PLATELET COUNT 232 X10^3/uL (150.0-450.0); RED BLOOD COUNT 3.65 X10^6/uL (3.5-5.4); RED CELL DISTRIBUTION WIDTH 12.9 % (11.6-16.5); WHITE BLOOD COUNT 5.7 X10^3/uL (3.6-10.0)
[2019-02-12 05:28] LABS: ALANINE AMINOTRANSFERASE 14 Units/L (12-78); ALBUMIN 3.2 g/dL (3.4-5.0); ALKALINE PHOSPHATASE 61 Units/L (46-116); ASPARTATE AMINO TRANSFERASE 18 Units/L (15-37); BLOOD UREA NITROGEN 8 mg/dL (7-18); CALCIUM 8.7 mg/dL (8.5-10.1); CARBON DIOXIDE 27.2 mmol/L (21-32); CHLORIDE 107 mmol/L (98-107); COR CA(FOR HYPOALB) 9.3 mg/dL (8.5-10.1); SODIUM 141 mmol/L (136-145); TOTAL PROTEIN 6.5 g/dL (6.4-8.2); eGFR NON BLACK RACES > 60 (>60)
[2019-02-12] MEDS: FLAGYL IV PREMIX 500 MG BAG 500 MG/100 ML BAG IV SCH (06:02)
[2019-02-12] MEDS: TYLENOL 325 MG TAB PO PRN (06:02)
[2019-02-12] MEDS: ROCEPHIN VIAL 1 GRAM 1 G in NS 100 ML IV + SPIKE MINIBAG* 100 ML IV SCH (09:08)
[2019-02-12] MEDS: CLARITIN PO SCH (09:08)
[2019-02-12] MEDS: COLACE CAP 100 MG PO SCH (09:08)
[2019-02-12] MEDS: FLONASE NASAL SPRAY ENOSTRIL SCH (09:09)
--- NOTE | 2019-02-12 09:32 | RAD ---
Examination: KUB History: Abdominal pain Findings: Essentially normal intestinal gas pattern and no evidence for visceral enlargement, ascites or mass formation. There is a 9.0 mm circular calcification projected medial to the right kidney. Impression: Unremarkable intestinal gas pattern with no definite ileus or obstruction. Right flank calcification is probably vascular, less likely a calculus at or near the UPJ. Additional imaging may be helpful to evaluate. Reported By:
[2019-02-12] MEDS ORDERED: DULCOLAX SUPPOSITORY 10 MG ONE (11:44)
[2019-02-12 13:54] VITALS: BP 135/86
== END 2019-02-12 11:25 | disposition home or self-care (01) | DRG 690 ==
LOC: MED/SURG 15:21 → ER 15:21 → OBSVTOIN 19:08 → MED/SURG 19:55
PROVIDERS: ADMIT Internal Medicine; ATTEND Internal Medicine
DX: R10.32 Left lower quadrant pain; N30.01 Acute cystitis with hematuria; K57.32 Diverticulitis of large intestine without perforation or abscess without bleeding; I10 Essential (primary) hypertension; E83.52 Hypercalcemia
CPT/HCPCS: 36415; 74000; 74018; 74177; 80048; 80053; 81001; 83970; 85025; 87086; 96365; 96374; 96375; 99284; A4222; S0030; J0696; J2270; J2405; J3490; J7030; J7050; S0119; S0181

== ENCOUNTER 2020-07-13 10:23 | Observation (INO) ==
[2020-07-13 10:46] VITALS: BMI 23.3
--- NOTE | 2020-07-13 11:08 | ED.ABDFE ---
HPI Time Seen Time Seen by Provider: 07/13/20 10:58 PCP Primary Care Physician: PAULINE DIANA HPI Comment HPI Comment: 64 yo f w/ prev hx of diverticulitis, CAD, HTN, HLD presents w/ 6 day hx of dull/ aching llq abd pain, non radiating, constant, worse w/ eating, no relieving factors, a/w nausea and decreased po intake. + bright red blood per rectum. + hematuria. No urinary irritative sx's, f/x, vomiting, CP/ SOB, back pain. seen by pcp earlier this week and started on po cipro. Complaint Chief Complaint:: PATIENT CAME TO ER REPORTS HAVING ABDOMINAL PAIN X 6 DAYS, CURRENTLY TAKING FLAGYL. COVID-19 Coronavirus risk:travel/contact w/high risk person: No Has patient experienced Coronavirus symptoms: No Source History Provided: Patient Mode of arrival Mode of Arrival: Ambulatory Timing Onset of Chief Complaint: 07/08/20 Came on: Gradually Context History of: Abdominal surgery Associated signs and symptoms Associated Signs and Symptoms: Nausea and Hematochezia; denies Vomiting, Diarrhea, Constipation, Hematemesis, Melena, Vaginal Discharge, Dysuria and Urgency PMH PMH Past Medical History: Yes Past Medical History: Anxiety, Coronary Artery Disease, Dyslipidemia, GERD, Hypertension and PUD Past Medical History Comment: DIVERTICULITIS Past Surgical History: Yes Surgical History: Hysterectomy Past Surgical History Comment: LUMPECTOMY Family History History of Family Medical Conditions: Yes Family Medical History: Hypertension Social History Type of Tobacco Use: None Does any household member use tobacco: No Alcohol Use: None Do you use any recreational Drugs:: No Lives With: Family Lives Where: Home Travel Risk Coronavirus risk:travel/contact w/high risk person: No Has patient experienced Coronavirus symptoms: No Infectious screening In the last 2 months have you had wt loss of >10#?: NO Have you had fever, night sweats or hemotysis?: No Have you traveled outside the country in the last 6 months?: No Isolation: Standard ROS Review of Systems Constitutional: negative Chills, Fever, Malaise and Fatigue Eyes: No Symptoms Reported ENTM: No Symptoms Reported Respiratoy: No Symptoms Reported Cardiovascular: No Symptoms Reported Gastrointestinal/Abdominal: Abdominal Pain and Nausea; negative Constipation, Diarrhea and Vomiting Genitourinary: Hematuria; negative Discharge, Dysuria, Frequency and Pain Neurological: No Symptoms Reported Musculoskeletal: No Symptoms Reported Integumentary: No Symptoms Reported Hematologic/Lymphatic: No Symptoms Reported Endocrine: No Symptoms Reported Psychiatric: No Symptoms Reported All Other Systems: Reviewed and Negative PE Vital Signs Vitals: Temperature 36.7 C Pulse Rate 79 Respiratory Rate 18 Blood Pressure [Left Arm] 135/86 Blood Pressure 101/59 O2 Sat by Pulse Oximetry 94 General Limitations: No Limitations and Language Barrier General Appearance: Alert and In No Apparent Distress Head Head Exam: Normal Inspection Eyes Eye exam: Normal Appearance ENT ENT Exam: Normal Exam Neck Neck Exam: Normal Inspection Chest Chest Inspection: Normal Inspection Respiratory Respiratory Exam: Normal Lung Sounds Bilat Cardiovascular Cardiovascular Exam: Regular Rate and Normal Rhythm Abdominal Exam Abdominal Exam: Normal Bowel Sounds and Guarding; negative Distention, Rebound and Rigidity Abdominal Tenderness: LLQ and Mild Rectal Rectal Exam: Deferred Back Back Exam: Normal Inspection Extremeties Extremities Exam: Normal Inspection Neurologic Neurological Exam: Alert and Oriented X3 Psychiatric Psychiatric Exam: Normal Affect and Normal Mood Skin Skin Exam: Warm, Dry and Intact MDM Differential Diagnosis Differential Diagnosis- Considerations may include:: Appendicitis, Bowel Obstruction, Constipation, Diverticular disease, Gastroenteritis, Inflammatory BD, Ischemic Bowel, Urinary tract infection and Urolithiasis COURSE Treatment Treatment: 64 yo f w/ pmh diverticulitis presents w/ recurrent llq pain. No elevated wbc, no fever. CT abd/ pelvis c/w simple diverticulitis, no evidence of abscess or perforation. Will admit for pain control, unable to tolerate po at home. ROR Labs Reviewed Laboratory Results Reviewed?: Yes Result Diagrams: 07/13/20 11:11 07/13/20 11:11 Laboratory: WBC 8.5 X10^3/uL (3.6-10.0) 07/13/20 11:11 RBC 4.15 X10^6/uL (3.5-5.4) 07/13/20 11:11 Hgb 13.5 g/dL (12.0-16.0) 07/13/20 11:11 Hct 39.6 % (36.0-47.0) 07/13/20 11:11 MCV 95.4 fL (80.0-100.0) 07/13/20 11:11 MCH 32.5 pg (27.0-34.0) 07/13/20 11:11 MCHC 34.1 g/dL (33.0-35.0) 07/13/20 11:11 RDW 13.0 % (11.6-16.5) 07/13/20 11:11 Plt Count 269 X10^3/uL (150.0-450.0) 07/13/20 11:11 MPV 7.5 fL (7.4-11.0) 07/13/20 11:11 Neut % (Auto) 39.4 % (42.0-75.0) L 07/13/20 11:11 Lymph % (Auto) 48.5 % (21.0-51.0) 07/13/20 11:11 [place] % (Auto) 9.1 % (0.0-13.0) 07/13/20 11:11 Eos % (Auto) 2.2 % (0.9-2.9) 07/13/20 11:11 Baso % (Auto) 0.8 % (0.2-1.0) 07/13/20 11:11 Neut # (Auto) 3.3 x10^3/uL (2.2-4.8) 07/13/20 11:11 Lymph # (Auto) 4.1 X10^3/uL (1.3-2.9) H 07/13/20 11:11 [place] # (Auto) 0.8 x10^3/uL (0.3-0.8) 07/13/20 11:11 Eos # (Auto) 0.2 x10^3/uL (0.0-0.2) 07/13/20 11:11 Baso # (Auto) 0.1 X10^3/uL (0.0-0.1) 07/13/20 11:11 Absolute Nucleated RBC 0.1 /100WBC 07/13/20 11:11 Sodium 141 mmol/L (136-145) 07/13/20 11:11 Corrected Sodium TNP 07/13/20 11:11 Potassium 3.9 mmol/L (3.5-5.1) 07/13/20 11:11 Chloride 104 mmol/L (98-107) 07/13/20 11:11 Carbon Dioxide 26.7 mmol/L (21-32) 07/13/20 11:11 BUN 11 mg/dL (7-18) 07/13/20 11:11 Creatinine 1.04 mg/dL (0.55-1.02) H 07/13/20 11:11 Est GFR (MDRD) Af Amer > 60 (>60) 07/13/20 11:11 Est GFR (MDRD) Non-Af 57 (>60) L 07/13/20 11:11 Glucose 96 mg/dL (65-99) 07/13/20 11:11 Calcium 10.3 mg/dL (8.5-10.1) H 07/13/20 11:11 Corrected Calcium TNP 07/13/20 11:11 Total Bilirubin 0.60 mg/dL (0.2-1.0) 07/13/20 11:11 AST 41 Units/L (15-37) H 07/13/20 11:11 ALT 51 Units/L (12-78) 07/13/20 11:11 Alkaline Phosphatase 71 Units/L (46-116) 07/13/20 11:11 Total Protein 7.6 g/dL (6.4-8.2) 07/13/20 11:11 Albumin 4.1 g/dL (3.4-5.0) 07/13/20 11:11 Globulin 3.5 g/dL (2.5-4.5) 07/13/20 11:11 Albumin/Globulin Ratio 1.2 Ratio (1.1-2.1) 07/13/20 11:11 Specimen Type Clean catch urine 07/13/20 11:05 Urine Color [place] (YELLOW) 07/13/20 11:05 Urine Appearance Clear (CLEAR) 07/13/20 11:05 Urine pH 8.0 (5.0 - 8.0) 07/13/20 11:05 Ur Specific [place] 1.010 (1.000-1.030) 07/13/20 11:05 Urine Protein Negative (NEGATIVE) 07/13/20 11:05 Urine Glucose (UA) Negative (NEGATIVE) 07/13/20 11:05 Urine Ketones Negative (NEGATIVE) 07/13/20 11:05 Urine Occult Blood 1+ (NEGATIVE) 07/13/20 11:05 Urine Nitrite Negative (NEGATIVE) 07/13/20 11:05 Urine Bilirubin Negative (NEGATIVE) 07/13/20 11:05 Urine Urobilinogen Normal (NORMAL) 07/13/20 11:05 Ur Leukocyte Esterase 1+ (NEGATIVE) 07/13/20 11:05 Urine RBC 3-5 /HPF (0-3) A 07/13/20 11:05 Urine WBC 0-2 /HPF (0-5) 07/13/20 11:05 Ur Squamous Epith Cells Few /HPF (NEGATIVE) 07/13/20 11:05 Urine Bacteria Trace /HPF (NEGATIVE) 07/13/20 11:05 Ur Culture Indicated? No/not indicated 07/13/20 11:05 XRAY XRAY Interpreted by: Radiologist X-ray Results: ct abd pelvis w/ iv contrast: acute diverticulitis w/o abscess Opioid Opioid Risk Tool Age ([place]anu box if 16-45): No History of Preadolescent Sexual Abuse: No Total: 0 Total Score Risk Category: Low Risk Copyright: Raymond FLORES predicting aberrant behaviors Diagnosis Discharge Problem: Diverticulitis, Diverticula of colon Instructions Forms: Patient Portal Social Distancing
[2020-07-13 11:24] LABS: BASOPHILS # (AUTO) 0.1 X10^3/uL (0.0-0.1); BASOPHILS % (AUTO) 0.8 % (0.2-1.0); EOSINOPHILS # (AUTO) 0.2 x10^3/uL (0.0-0.2); EOSINOPHILS % (AUTO) 2.2 % (0.9-2.9); HEMATOCRIT 39.6 % (36.0-47.0); HEMOGLOBIN 13.5 g/dL (12.0-16.0); LYMPHOCYTES # (AUTO) 4.1 X10^3/uL (1.3-2.9); LYMPHOCYTES % (AUTO) 48.5 % (21.0-51.0); MEAN CORPUSCULAR HEMOGLOBIN 32.5 pg (27.0-34.0); MEAN CORPUSCULAR HGB CONC 34.1 g/dL (33.0-35.0); MEAN CORPUSCULAR VOLUME 95.4 fL (80.0-100.0); MEAN PLATELET VOLUME 7.5 fL (7.4-11.0); MONOCYTES # (AUTO) 0.8 x10^3/uL (0.3-0.8); MONOCYTES % (AUTO) 9.1 % (0.0-13.0); NEUTROPHILS # (AUTO) 3.3 x10^3/uL (2.2-4.8); NEUTROPHILS % (AUTO) 39.4 % (42.0-75.0); PLATELET COUNT 269 X10^3/uL (150.0-450.0); RED BLOOD COUNT 4.15 X10^6/uL (3.5-5.4); WHITE BLOOD COUNT 8.5 X10^3/uL (3.6-10.0)
[2020-07-13 11:30] LABS: BILIRUBIN,URINE NEGATIVE (NEGATIVE); BLOOD/HEMOGLOBIN,URINE 1+ (NEGATIVE); GLUCOSE, URINE NEGATIVE (NEGATIVE); KETONES,URINE NEGATIVE (NEGATIVE); LEUKOCYTE ESTERASE ,URINE 1+ (NEGATIVE); NITRITES,URINE NEGATIVE (NEGATIVE); PROTEIN,URINE NEGATIVE (NEGATIVE); UROBILINOGEN,URINE NORMAL (NORMAL)
[2020-07-13 11:35] LABS: ALANINE AMINOTRANSFERASE 51 Units/L (12-78); ALBUMIN 4.1 g/dL (3.4-5.0); ALKALINE PHOSPHATASE 71 Units/L (46-116); ASPARTATE AMINO TRANSFERASE 41 Units/L (15-37); BLOOD UREA NITROGEN 11 mg/dL (7-18); CALCIUM 10.3 mg/dL (8.5-10.1); CARBON DIOXIDE 26.7 mmol/L (21-32); CHLORIDE 104 mmol/L (98-107); CREATININE 1.04 mg/dL (0.55-1.02); SODIUM 141 mmol/L (136-145); TOTAL PROTEIN 7.6 g/dL (6.4-8.2); eGFR NON BLACK RACES 57 (>60)
[2020-07-13 11:39] LABS: APPEARANCE,URINE CLEAR (CLEAR); BACTERIA,URINE TRACE /HPF (NEGATIVE); COLOR,URINE YELLOW (YELLOW); SQUAMOUS EPITHELIAL CELL,UR FEW /HPF (NEGATIVE)
[2020-07-13] MEDS ORDERED: DILAUDID INJ IVP ONE (11:46)
[2020-07-13] MEDS ORDERED: ZOFRAN INJ 4 MG VIAL IVP ONE (11:46)
[2020-07-13] MEDS ORDERED: DILAUDID INJ ONE (11:50)
[2020-07-13] MEDS ORDERED: NS 1000 ML 1,000 ML ONE (11:50)
[2020-07-13] MEDS ORDERED: ZOFRAN INJ 4 MG VIAL ONE (11:50)
[2020-07-13] MEDS: NS 1000 ML 1,000 ML IV ONE ×2 (11:57→11:59)
[2020-07-13] MEDS ORDERED: REGLAN INJ 10 MG VIAL IVP ONE (12:18)
[2020-07-13] MEDS ORDERED: REGLAN INJ 10 MG VIAL ONE (12:19)
[2020-07-13] MEDS ORDERED: ATIVAN INJ 2 MG VIAL IVP ONE (12:31)
[2020-07-13] MEDS ORDERED: ATIVAN INJ 2 MG VIAL ONE (12:33)
--- NOTE | 2020-07-13 14:03 | CT ---
HISTORYLeft lower quadrant painSTUDYCT abdomen pelvis with contrastTechnique: Axial post-contrast images with coronal and sagittal reformats. Dose reduction procedures were used with mA/kv adjusted for body size.[id number] lung bases are clear. There is a small hiatal hernia present. The liver, spleen, adrenal glands, and pancreas are within normal limits. No opaque stones are present within the gallbladder. The kidneys are unobstructed and without stones or masses. Bilateral cysts are present. No ureteral calculi are identified. Mild calcific atherosclerotic changes present a nondilated abdominal aorta. No intraperitoneal or retroperitoneal lymphadenopathy of significance is identified. The appendix is not identified. There are no secondary signs of appendicitis. There are no findings suggestive of enteritis or colitis. There is diverticulosis of the descending and sigmoid colon without findings to suggest diverticulitis at this time. Examination of the pelvis demonstrated no evidence for pelvic masses, pelvic fluid, or pelvic lymphadenopathy. No bladder abnormality is identified. No lytic or blastic skeletal lesions of significance are identified.IMPRESSIONNo definite acute intra-abdominal or intrapelvic abnormality identifiedDiverticulosis of the descending and sigmoid colon without findings suggestive of diverticulitis at this time.Electronically signed by: CLAUDIA CA (Jul 13, 2020 14:01:34)
[2020-07-13] MEDS ORDERED: NORCO 5/325 MG TAB PO PRN (14:23)
[2020-07-13] MEDS ORDERED: MORPHINE SULFATE INJ 4 MG IVP PRN (14:23)
[2020-07-13] MEDS ORDERED: ZOFRAN INJ 4 MG VIAL IVP PRN (14:23)
[2020-07-13] MEDS ORDERED: ROCEPHIN 1 GRAM IV PREMIX 1 G/50 ML IV.SOLN. IV ONE (14:28)
[2020-07-13] MEDS: ROCEPHIN 1 GRAM IV PREMIX 1 G/50 ML IV.SOLN. IV SCH (14:33)
[2020-07-13] MEDS: FLAGYL IV PREMIX 500 MG BAG 500 MG/100 ML BAG IV SCH ×2 (17:50→22:00)
[2020-07-13] MEDS: NS 1000 ML 1,000 ML IV SCH (22:08)
[2020-07-14] MEDS: FLAGYL IV PREMIX 500 MG BAG 500 MG/100 ML BAG IV SCH ×2 (03:41→10:27)
[2020-07-14] MEDS: ROCEPHIN 1 GRAM IV PREMIX 1 G/50 ML IV.SOLN. IV SCH (09:33)
[2020-07-14] MEDS: NS 1000 ML 1,000 ML IV SCH (10:27)
[2020-07-14] MEDS ORDERED: XANAX PO PRN (12:27)
[2020-07-14 14:44] VITALS: BP 151/76
[2020-07-15] MEDS ORDERED: ZESTRIL TAB 10 MG PO SCH (09:00)
== END 2020-07-14 13:40 | disposition home or self-care (01) ==
LOC: ER 10:40 → MED/SURG 10:40
PROVIDERS: ADMIT Obstetrics & Gynecology Obstetrics; ATTEND Family Medicine
DX: K21.9 Gastro-esophageal reflux disease without esophagitis; E78.2 Mixed hyperlipidemia; I10 Essential (primary) hypertension; I25.10 Atherosclerotic heart disease of native coronary artery without angina pectoris; F41.8 Other specified anxiety disorders; K57.30 Diverticulosis of large intestine without perforation or abscess without bleeding; R10.84 Generalized abdominal pain

== ENCOUNTER 2020-08-13 07:16 | Inpatient (IN) ==
[2020-08-13] MEDS ORDERED: ANCEF 1 GRAM IV PREMIX* 1 G/50 ML BAG IV ONE (07:37)
[2020-08-13] MEDS ORDERED: LR 1000 ML IV 1,000 ML IV ONE ×2 (07:37→09:53)
[2020-08-13 08:24] VITALS: BMI 23.8
[2020-08-13] MEDS ORDERED: BRIDION ONE (09:01)
[2020-08-13] MEDS ORDERED: OFIRMEV IV 1000 MG VIAL 1,000 MG/100 ML VIAL IV ONE (09:01)
[2020-08-13] MEDS ORDERED: DILAUDID INJ ONE (09:01)
[2020-08-13] MEDS ORDERED: FENTANYL INJ 250 mcg ONE (09:01)
[2020-08-13] MEDS ORDERED: ZEMURON 50 MG VIAL ONE (09:02)
[2020-08-13] MEDS ORDERED: POLYMYXIN B SULFATE ONE (09:53)
[2020-08-13] MEDS ORDERED: LEVAQUIN PREMIX IV 500 MG 500 MG/100 ML BAG IV ONE (10:05)
[2020-08-13] MEDS: D5 1/2 NS 1000 ML 1,000 ML IV SCH ×2 (13:16→20:12)
[2020-08-13] MEDS: DILAUDID INJ IVP PRN ×2 (13:41→18:28)
[2020-08-13] MEDS: ZOFRAN INJ 4 MG VIAL IVP PRN (18:21)
--- NOTE | 2020-08-13 20:06 | DR.H&P ---
H&P History & Physical for Day of: H&P Date: 08/13/20 Chief Complaint Chief Complaint: Medical consult post-rectosigmoid resection with primary anastomosis Allergies Allergies Allergy/AdvReac Type Severity Reaction Status Date / Time No Known Drug Allergies Allergy Verified 02/03/18 07:30 History of Present Illness History of Present Illness: Pt is a 64 year old female past medical history of HTN, WILLY, CAD, Diverticulosis admitted after having recurrent sigmoid diverticulitis with pain and was admitted to the hospital in the past for diverticulitis. She had a GI workup including a colonoscopy. The patient was having repeat episodes of pain and requested surgery. Pt underwent today rectosigmoid resection with primary anastomosis without complications. On exam patient reports having some abdominal pain but otherwise no acute concerns. Consulted for medical management. Labs/imaging: Wbc 4.6, Hgb 14.1, Plt 289, Na 138, K 4.0, Creatinine 0.99, Glucose 115. Pt is NPO. Will hold starting any po home medications at this time and if needed will use IV alternative. Pt has NGT, continue IVF D5 1/2 NS@125ml/h, IV Levaquin, pain and nausea control. Will cont inue to monitor patient and follow up labs in the morning. Past Medical History Past Medical History: Anxiety, Coronary Artery Disease, Dyslipidemia, GERD, Hypertension and PUD Past Surgical History Surgical History: Hysterectomy Family History Family Medical History: Cancer, [place], Coronary Artery Disease and Hypertension Social History Does patient currently use any type of tobacco product: No Have you used tobacco products in the last 12 months: No Type of Tobacco Use: None Does any household member use tobacco: No Alcohol Use: None Drug Use: None Medications Home Medications: No Known Drug Allergies Allergy (Verified 02/03/18 07:30) CONTINUE taking the following medications alprazolam 0.25 mg PO BID 08/13/20 [History] aspirin 81 mg PO DAILY 08/13/20 [History] atorvastatin 40 mg PO QHS 08/13/20 [History] escitalopram oxalate 5 mg PO DAILY 08/13/20 [History] loratadine [Claritin] 10 mg PO DAILY 08/13/20 [History] olopatadine 1 drp OPHTHALMIC (EYE) BID 08/13/20 [History] pantoprazole 40 mg PO QAM 08/13/20 [History] polyethylene glycol 3350 [Miralax] 17 g PO DAILY 08/13/20 [History] Labs Labs: Laboratory Tissue Pathology To follow 08/13/20 11:00 Review of Systems Constitutional: No Symptoms Reported Eyes: No Symptoms Reported ENT: No Symptoms Reported Respiratory: No Symptoms Reported Cardiovascular: No Symptoms Reported Gastrointestinal: Abdominal Pain Genitourinary: No Symptoms Reported Musculoskeletal: No Symptoms Reported Skin: No Symptoms Reported Neurological: No Symptoms Reported Physical Exam Vital Signs: Temperature 97.6 F Pulse Rate [Left Brachial] 71 Pulse Rate 72 Respiratory Rate 20 Blood Pressure [Left Arm] 107/59 Blood Pressure 102/59 O2 Sat by Pulse Oximetry 96 Oriented: Normal Eyes: Normal Ear: Normal Nose: Normal Throat: Normal Respiratory: Clear Throughout Cardiovascular: Normal : Normal Auscultation: Bowel Sounds: Decreased Palpation: Normal Tenderness: Diffuse Skin: Normal Musculoskeletal: Normal Psychiatric: Normal Mood Description: Calm and Appropriate Affect: Normal Speech Pattern: Clear and Appropriate Assessment/Plan (1) Status post colon resection: Status: Acute (2) Hypertension: Status: Acute (3) WILLY (generalized anxiety disorder): Status: Acute (4) Hyperlipidemia: Status: Acute Review H&P Reviewed: Yes Patient was examined?: Yes
[2020-08-14] MEDS: DILAUDID INJ IVP PRN ×3 (00:49→14:14)
[2020-08-14] MEDS: D5 1/2 NS 1000 ML 1,000 ML IV SCH ×3 (04:17→14:15)
[2020-08-14] MEDS: ZOFRAN INJ 4 MG VIAL IVP PRN (05:12)
[2020-08-14 06:08] LABS: BASOPHILS % (AUTO) 0.1 % (0.2-1.0); EOSINOPHILS % (AUTO) 0.2 % (0.9-2.9); HEMATOCRIT 35.8 % (36.0-47.0); HEMOGLOBIN 12.3 g/dL (12.0-16.0); LYMPHOCYTES # (AUTO) 2.4 X10^3/uL (1.3-2.9); LYMPHOCYTES % (AUTO) 20.6 % (21.0-51.0); MEAN CORPUSCULAR HEMOGLOBIN 32.8 pg (27.0-34.0); MEAN CORPUSCULAR HGB CONC 34.2 g/dL (33.0-35.0); MEAN CORPUSCULAR VOLUME 95.9 fL (80.0-100.0); MONOCYTES # (AUTO) 0.9 x10^3/uL (0.3-0.8); MONOCYTES % (AUTO) 8.1 % (0.0-13.0); NEUTROPHILS # (AUTO) 8.2 x10^3/uL (2.2-4.8); PLATELET COUNT 241 X10^3/uL (150.0-450.0); RED BLOOD COUNT 3.74 X10^6/uL (3.5-5.4); RED CELL DISTRIBUTION WIDTH 13.3 % (11.6-16.5); WHITE BLOOD COUNT 11.6 X10^3/uL (3.6-10.0)
[2020-08-14 06:10] LABS: ALANINE AMINOTRANSFERASE 35 Units/L (12-78); ALBUMIN 3.1 g/dL (3.4-5.0); ALKALINE PHOSPHATASE 57 Units/L (46-116); ASPARTATE AMINO TRANSFERASE 22 Units/L (15-37); BLOOD UREA NITROGEN 8 mg/dL (7-18); CALCIUM 8.6 mg/dL (8.5-10.1); CARBON DIOXIDE 27.5 mmol/L (21-32); CHLORIDE 101 mmol/L (98-107); COR CA(FOR HYPOALB) 9.3 mg/dL (8.5-10.1); COR NA(FOR HYPERGLY) 138 mmol/L (136-145); CREATININE 0.92 mg/dL (0.55-1.02); SODIUM 137 mmol/L (136-145); TOTAL PROTEIN 6.2 g/dL (6.4-8.2); eGFR NON BLACK RACES > 60 (>60)
[2020-08-14] MEDS: LEVAQUIN PREMIX IV 500 MG 500 MG/100 ML BAG IV SCH (08:51)
[2020-08-14] MEDS: LOVENOX INJ 40 MG SYR SC SCH (08:53)
--- NOTE | 2020-08-14 09:08 | DR.PROGNOT ---
Hospital Progress Notes - Progress Note for Day of: Progress Note Date: 08/14/20 - Chief Complaint Chief Complaint: post op day 1. doing fairly well .. c/o incisional pain . minimal dainage in FELICIA .. - Past Medical Family Social History Past Med/Fam/Surg Hx: No changes since H&P Allergies: Allergies No Known Drug Allergies Allergy (Verified 02/03/18 07:30) - Review Of Systems ROS: No change since H&P - Vital Signs Vital Signs: Temperature 98.7 F Pulse Rate [Left Brachial] 70 Pulse Rate 72 Respiratory Rate 18 Blood Pressure [Left Arm] 96/53 Blood Pressure 102/59 O2 Sat by Pulse Oximetry 98 - Physical Exam Oriented: Normal Eyes: Normal Ear: Normal Nose: Normal Throat: Normal Cardiovascular: Normal : Normal GI:Auscultation: Decreased GI:Palpation: Normal GI: Tenderness: Diffuse (soft abdomen , flat . BS hypoctive ..) Skin: Normal Musculoskeletal: Normal Psychiatric: Normal Mood Description: Calm, Appropriate Affect: Normal Speech Pattern: Clear, Appropriate - Laboratory and Diagnostics Result Diagrams: 08/14/20 05:15 08/14/20 05:15 Labs: Laboratory WBC 11.6 X10^3/uL (3.6-10.0) H 08/14/20 05:15 RBC 3.74 X10^6/uL (3.5-5.4) 08/14/20 05:15 Hgb 12.3 g/dL (12.0-16.0) 08/14/20 05:15 Hct 35.8 % (36.0-47.0) L 08/14/20 05:15 MCV 95.9 fL (80.0-100.0) 08/14/20 05:15 MCH 32.8 pg (27.0-34.0) 08/14/20 05:15 MCHC 34.2 g/dL (33.0-35.0) 08/14/20 05:15 RDW 13.3 % (11.6-16.5) 08/14/20 05:15 Plt Count 241 X10^3/uL (150.0-450.0) 08/14/20 05:15 MPV 8.0 fL (7.4-11.0) 08/14/20 05:15 Neut % (Auto) 71.0 % (42.0-75.0) 08/14/20 05:15 Lymph % (Auto) 20.6 % (21.0-51.0) L 08/14/20 05:15 [place] % (Auto) 8.1 % (0.0-13.0) 08/14/20 05:15 Eos % (Auto) 0.2 % (0.9-2.9) L 08/14/20 05:15 Baso % (Auto) 0.1 % (0.2-1.0) L 08/14/20 05:15 Neut # (Auto) 8.2 x10^3/uL (2.2-4.8) H 08/14/20 05:15 Lymph # (Auto) 2.4 X10^3/uL (1.3-2.9) 08/14/20 05:15 [place] # (Auto) 0.9 x10^3/uL (0.3-0.8) H 08/14/20 05:15 Eos # (Auto) 0.0 x10^3/uL (0.0-0.2) 08/14/20 05:15 Baso # (Auto) 0.0 X10^3/uL (0.0-0.1) 08/14/20 05:15 Absolute Nucleated RBC 0.0 /100WBC 08/14/20 05:15 Sodium 137 mmol/L (136-145) 08/14/20 05:15 Corrected Sodium 138 mmol/L (136-145) 08/14/20 05:15 Potassium 4.2 mmol/L (3.5-5.1) 08/14/20 05:15 Chloride 101 mmol/L (98-107) 08/14/20 05:15 Carbon Dioxide 27.5 mmol/L (21-32) 08/14/20 05:15 BUN 8 mg/dL (7-18) 08/14/20 05:15 Creatinine 0.92 mg/dL (0.55-1.02) 08/14/20 05:15 Est GFR (MDRD) Af Amer > 60 (>60) 08/14/20 05:15 Est GFR (MDRD) Non-Af > 60 (>60) 08/14/20 05:15 Glucose 129 mg/dL (65-99) H 08/14/20 05:15 Calcium 8.6 mg/dL (8.5-10.1) 08/14/20 05:15 Corrected Calcium 9.3 mg/dL (8.5-10.1) 08/14/20 05:15 Total Bilirubin 0.50 mg/dL (0.2-1.0) 08/14/20 05:15 AST 22 Units/L (15-37) 08/14/20 05:15 ALT 35 Units/L (12-78) 08/14/20 05:15 Alkaline Phosphatase 57 Units/L (46-116) 08/14/20 05:15 Total Protein 6.2 g/dL (6.4-8.2) L 08/14/20 05:15 Albumin 3.1 g/dL (3.4-5.0) L 08/14/20 05:15 Globulin 3.1 g/dL (2.5-4.5) 08/14/20 05:15 Albumin/Globulin Ratio 1.0 Ratio (1.1-2.1) L 08/14/20 05:15 Tissue Pathology To follow 08/13/20 11:00 - Assessment and Plan 1: recurrent diverticulitis . s/p laparotomy , lysis of abdominal , pelvic adhesions . resection of recto sigmoid . same PO care , d/c NGT and calderon cath . OOB . stay NPO with ICE chipps and water .
--- NOTE | 2020-08-14 09:52 | PCM.PROG ---
Progress Note Progress Note for Day of Date of Exam: 08/14/20 Subjective Subjective: Pt is a 64 year old female past medical history of HTN, WILLY, CAD, s/p D#1 rectosigmoid resection with primary anastomosis. This morning pt reports some abdominal soreness. She has NGT and J/P drain in place. Labs/imaging: Wbc 11.6, Hgb 12.3, Plt 241, Na 137, K 4.2, Creatinine 0.92, Glucose 129. Pt can be NPO today except for ice chips and medications. Surgery is following, plan to remove NGT, keep J/P drain. Continue IVF D5 1/2NS@125ml/h, IV Levaquin, pain and nausea control. Will continue to monitor patient and follow up labs in the morning. Past Medical Family Social History Past Med/Fam/Surg Hx: No changes since H&P Allergies: Allergies No Known Drug Allergies Allergy (Verified 02/03/18 07:30) Review of Systems ROS: No change since H&P Vital Signs and I&O's Vital Signs: Temperature 98.7 F Pulse Rate [Left Brachial] 70 Pulse Rate 72 Respiratory Rate 18 Blood Pressure [Left Arm] 96/53 Blood Pressure 102/59 O2 Sat by Pulse Oximetry 98 Intake and Output: Intake & Output 08/11/20 08/12/20 08/13/20 08/14/20 23:59 23:59 23:59 23:59 Intake Total 6613 / 6613 906 / 906 Output Total 4330 / 4330 1340 / 1340 Balance 2283 / 2283 -434 / -434 Physical Exam Oriented: Normal Eyes: Normal Ear: Normal Nose: Normal Throat: Normal Respiratory: Normal Cardiovascular: Normal : Normal Auscultation: Bowel Sounds: Decreased Tenderness: Diffuse (soft abdomen , flat . BS hypoctive ..) Skin: Normal Musculoskeletal: Normal Psychiatric: Normal Mood Description: Calm and Appropriate Affect: Normal Speech Pattern: Clear and Appropriate Laboratory and Diagnostics Result Diagrams: 08/14/20 05:15 08/14/20 05:15 Labs: Laboratory WBC 11.6 X10^3/uL (3.6-10.0) H 08/14/20 05:15 RBC 3.74 X10^6/uL (3.5-5.4) 08/14/20 05:15 Hgb 12.3 g/dL (12.0-16.0) 08/14/20 05:15 Hct 35.8 % (36.0-47.0) L 08/14/20 05:15 MCV 95.9 fL (80.0-100.0) 08/14/20 05:15 MCH 32.8 pg (27.0-34.0) 08/14/20 05:15 MCHC 34.2 g/dL (33.0-35.0) 08/14/20 05:15 RDW 13.3 % (11.6-16.5) 08/14/20 05:15 Plt Count 241 X10^3/uL (150.0-450.0) 08/14/20 05:15 MPV 8.0 fL (7.4-11.0) 08/14/20 05:15 Neut % (Auto) 71.0 % (42.0-75.0) 08/14/20 05:15 Lymph % (Auto) 20.6 % (21.0-51.0) L 08/14/20 05:15 [place] % (Auto) 8.1 % (0.0-13.0) 08/14/20 05:15 Eos % (Auto) 0.2 % (0.9-2.9) L 08/14/20 05:15 Baso % (Auto) 0.1 % (0.2-1.0) L 08/14/20 05:15 Neut # (Auto) 8.2 x10^3/uL (2.2-4.8) H 08/14/20 05:15 Lymph # (Auto) 2.4 X10^3/uL (1.3-2.9) 08/14/20 05:15 [place] # (Auto) 0.9 x10^3/uL (0.3-0.8) H 08/14/20 05:15 Eos # (Auto) 0.0 x10^3/uL (0.0-0.2) 08/14/20 05:15 Baso # (Auto) 0.0 X10^3/uL (0.0-0.1) 08/14/20 05:15 Absolute Nucleated RBC 0.0 /100WBC 08/14/20 05:15 Sodium 137 mmol/L (136-145) 08/14/20 05:15 Corrected Sodium 138 mmol/L (136-145) 08/14/20 05:15 Potassium 4.2 mmol/L (3.5-5.1) 08/14/20 05:15 Chloride 101 mmol/L (98-107) 08/14/20 05:15 Carbon Dioxide 27.5 mmol/L (21-32) 08/14/20 05:15 BUN 8 mg/dL (7-18) 08/14/20 05:15 Creatinine 0.92 mg/dL (0.55-1.02) 08/14/20 05:15 Est GFR (MDRD) Af Amer > 60 (>60) 08/14/20 05:15 Est GFR (MDRD) Non-Af > 60 (>60) 08/14/20 05:15 Glucose 129 mg/dL (65-99) H 08/14/20 05:15 Calcium 8.6 mg/dL (8.5-10.1) 08/14/20 05:15 Corrected Calcium 9.3 mg/dL (8.5-10.1) 08/14/20 05:15 Total Bilirubin 0.50 mg/dL (0.2-1.0) 08/14/20 05:15 AST 22 Units/L (15-37) 08/14/20 05:15 ALT 35 Units/L (12-78) 08/14/20 05:15 Alkaline Phosphatase 57 Units/L (46-116) 08/14/20 05:15 Total Protein 6.2 g/dL (6.4-8.2) L 08/14/20 05:15 Albumin 3.1 g/dL (3.4-5.0) L 08/14/20 05:15 Globulin 3.1 g/dL (2.5-4.5) 08/14/20 05:15 Albumin/Globulin Ratio 1.0 Ratio (1.1-2.1) L 08/14/20 05:15 Tissue Pathology To follow 08/13/20 11:00 Plan (1) Status post colon resection: Status: Acute (2) Hypertension: Status: Acute (3) WILLY (generalized anxiety disorder): Status: Acute (4) Hyperlipidemia: Status: Acute
[2020-08-14] MEDS: ZESTRIL TAB 10 MG PO SCH (16:12)
[2020-08-14] MEDS ORDERED: MAALOX or MYLANTA PO PRN (19:02)
[2020-08-14] MEDS: PERCOCET TAB 5/325 MG PO PRN (19:49)
[2020-08-14] MEDS: PROTONIX INJ 40 MG VIAL IVP SCH (20:51)
[2020-08-15] MEDS: PERCOCET TAB 5/325 MG PO PRN ×3 (03:01→16:35)
[2020-08-15] MEDS: D5 1/2 NS 1000 ML 1,000 ML IV SCH ×5 (03:01→22:03)
[2020-08-15 06:43] LABS: BASOPHILS % (AUTO) 0.4 % (0.2-1.0); EOSINOPHILS # (AUTO) 0.1 x10^3/uL (0.0-0.2); EOSINOPHILS % (AUTO) 1.3 % (0.9-2.9); HEMATOCRIT 33.7 % (36.0-47.0); HEMOGLOBIN 11.6 g/dL (12.0-16.0); LYMPHOCYTES # (AUTO) 2.2 X10^3/uL (1.3-2.9); LYMPHOCYTES % (AUTO) 25.7 % (21.0-51.0); MEAN CORPUSCULAR HEMOGLOBIN 33.1 pg (27.0-34.0); MEAN CORPUSCULAR HGB CONC 34.6 g/dL (33.0-35.0); MEAN CORPUSCULAR VOLUME 95.8 fL (80.0-100.0); MEAN PLATELET VOLUME 8.3 fL (7.4-11.0); MONOCYTES # (AUTO) 0.6 x10^3/uL (0.3-0.8); MONOCYTES % (AUTO) 7.4 % (0.0-13.0); NEUTROPHILS # (AUTO) 5.6 x10^3/uL (2.2-4.8); NEUTROPHILS % (AUTO) 65.2 % (42.0-75.0); PLATELET COUNT 214 X10^3/uL (150.0-450.0); RED BLOOD COUNT 3.52 X10^6/uL (3.5-5.4); RED CELL DISTRIBUTION WIDTH 13.3 % (11.6-16.5); WHITE BLOOD COUNT 8.6 X10^3/uL (3.6-10.0)
[2020-08-15 07:17] LABS: ALANINE AMINOTRANSFERASE 30 Units/L (12-78); ALBUMIN 2.8 g/dL (3.4-5.0); ALKALINE PHOSPHATASE 57 Units/L (46-116); ASPARTATE AMINO TRANSFERASE 26 Units/L (15-37); BLOOD UREA NITROGEN 7 mg/dL (7-18); CALCIUM 8.4 mg/dL (8.5-10.1); CHLORIDE 105 mmol/L (98-107); COR CA(FOR HYPOALB) 9.4 mg/dL (8.5-10.1); COR NA(FOR HYPERGLY) 139 mmol/L (136-145); CREATININE 1.03 mg/dL (0.55-1.02); SODIUM 139 mmol/L (136-145); TOTAL PROTEIN 6.1 g/dL (6.4-8.2); eGFR NON BLACK RACES 57 (>60)
--- NOTE | 2020-08-15 08:32 | PCM.PROG ---
Progress Note Progress Note for Day of Date of Exam: 08/15/20 Subjective Subjective: Pt is a 64 year old female past medical history of HTN, WILLY, CAD, POD#2 rectosigmoid resection with primary anastomosis. This morning she reports improvement in abdominal pain and feeling better. She had NGT removed yesterday, still has J/P drain in place. Labs/imaging: Wbc 8.6, Hgb 11.6, Plt 214, Na 139, K 3.8, Creatinine 1.03, Glucose 115. Pt diet advanced to full liquids. General surgery following. Continue IVF D5 1/2NS@125ml/h, IV Levaquin, pain and nausea control. Continue to monitor patient and follow up labs in the morning. Past Medical Family Social History Past Med/Fam/Surg Hx: No changes since H&P Allergies: Allergies No Known Drug Allergies Allergy (Verified 02/03/18 07:30) Review of Systems ROS: No change since H&P Vital Signs and I&O's Vital Signs: Temperature 98.6 F Pulse Rate [Left Brachial] 87 Pulse Rate 72 Respiratory Rate 20 Blood Pressure [Left Arm] 133/64 Blood Pressure 102/59 O2 Sat by Pulse Oximetry 100 Intake and Output: Intake & Output 08/12/20 08/13/20 08/14/20 08/15/20 23:59 23:59 23:59 23:59 Intake Total 6613 / 6613 3238 / 3238 897 / 897 Output Total 4330 / 4330 2690 / 2690 60 / 60 Balance 2283 / 2283 548 / 548 837 / 837 Physical Exam Oriented: Normal Eyes: Normal Ear: Normal Nose: Normal Throat: Normal Respiratory: Normal Cardiovascular: Normal : Normal Auscultation: Bowel Sounds: Normal Tenderness: Normal Skin: Normal Musculoskeletal: Normal Psychiatric: Normal Mood Description: Calm and Appropriate Affect: Normal Speech Pattern: Clear and Appropriate Laboratory and Diagnostics Result Diagrams: 08/15/20 05:29 08/15/20 05:29 Labs: Laboratory WBC 8.6 X10^3/uL (3.6-10.0) 08/15/20 05:29 RBC 3.52 X10^6/uL (3.5-5.4) 08/15/20 05:29 Hgb 11.6 g/dL (12.0-16.0) L 08/15/20 05:29 Hct 33.7 % (36.0-47.0) L 08/15/20 05:29 MCV 95.8 fL (80.0-100.0) 08/15/20 05:29 MCH 33.1 pg (27.0-34.0) 08/15/20 05:29 MCHC 34.6 g/dL (33.0-35.0) 08/15/20 05:29 RDW 13.3 % (11.6-16.5) 08/15/20 05:29 Plt Count 214 X10^3/uL (150.0-450.0) 08/15/20 05:29 MPV 8.3 fL (7.4-11.0) 08/15/20 05:29 Neut % (Auto) 65.2 % (42.0-75.0) 08/15/20 05:29 Lymph % (Auto) 25.7 % (21.0-51.0) 08/15/20 05:29 [place] % (Auto) 7.4 % (0.0-13.0) 08/15/20 05:29 Eos % (Auto) 1.3 % (0.9-2.9) 08/15/20 05:29 Baso % (Auto) 0.4 % (0.2-1.0) 08/15/20 05:29 Neut # (Auto) 5.6 x10^3/uL (2.2-4.8) H 08/15/20 05:29 Lymph # (Auto) 2.2 X10^3/uL (1.3-2.9) 08/15/20 05:29 [place] # (Auto) 0.6 x10^3/uL (0.3-0.8) 08/15/20 05:29 Eos # (Auto) 0.1 x10^3/uL (0.0-0.2) 08/15/20 05:29 Baso # (Auto) 0.0 X10^3/uL (0.0-0.1) 08/15/20 05:29 Absolute Nucleated RBC 0.0 /100WBC 08/15/20 05:29 Sodium 139 mmol/L (136-145) 08/15/20 05:29 Corrected Sodium 139 mmol/L (136-145) 08/15/20 05:29 Potassium 3.8 mmol/L (3.5-5.1) 08/15/20 05:29 Chloride 105 mmol/L (98-107) 08/15/20 05:29 Carbon Dioxide 27.0 mmol/L (21-32) 08/15/20 05:29 BUN 7 mg/dL (7-18) 08/15/20 05:29 Creatinine 1.03 mg/dL (0.55-1.02) H 08/15/20 05:29 Est GFR (MDRD) Af Amer > 60 (>60) 08/15/20 05:29 Est GFR (MDRD) Non-Af 57 (>60) L 08/15/20 05:29 Glucose 115 mg/dL (65-99) H 08/15/20 05:29 Calcium 8.4 mg/dL (8.5-10.1) L 08/15/20 05:29 Corrected Calcium 9.4 mg/dL (8.5-10.1) 08/15/20 05:29 Total Bilirubin 0.40 mg/dL (0.2-1.0) 08/15/20 05:29 AST 26 Units/L (15-37) 08/15/20 05:29 ALT 30 Units/L (12-78) 08/15/20 05:29 Alkaline Phosphatase 57 Units/L (46-116) 08/15/20 05:29 Total Protein 6.1 g/dL (6.4-8.2) L 08/15/20 05:29 Albumin 2.8 g/dL (3.4-5.0) L 08/15/20 05:29 Globulin 3.3 g/dL (2.5-4.5) 08/15/20 05:29 Albumin/Globulin Ratio 0.8 Ratio (1.1-2.1) L 08/15/20 05:29 Tissue Pathology To follow 08/13/20 11:00 Plan (1) Status post colon resection: Status: Acute (2) Hypertension: Status: Acute (3) WILLY (generalized anxiety disorder): Status: Acute (4) Hyperlipidemia: Status: Acute
--- NOTE | 2020-08-15 08:41 | DR.PROGNOT ---
Hospital Progress Notes - Progress Note for Day of: Progress Note Date: 08/15/20 - Chief Complaint Chief Complaint: post op day 2. doing fairly well , passing flatus , no BM yet .. c/o moderate incisional pain . minimal dainage in [place] .. afebrile .. - Past Medical Family Social History Past Med/Fam/Surg Hx: No changes since H&P Allergies: Allergies No Known Drug Allergies Allergy (Verified 02/03/18 07:30) - Review Of Systems ROS: No change since H&P - Vital Signs Vital Signs: Temperature 98.6 F Pulse Rate [Left Brachial] 87 Pulse Rate 72 Respiratory Rate 20 Blood Pressure [Left Arm] 133/64 Blood Pressure 102/59 O2 Sat by Pulse Oximetry 100 - Physical Exam Oriented: Normal Eyes: Normal Ear: Normal Nose: Normal Throat: Normal Respiratory: Normal Cardiovascular: Normal : Normal GI:Auscultation: Normal GI:Palpation: Normal GI: Tenderness: Normal Skin: Normal Musculoskeletal: Normal Psychiatric: Normal Mood Description: Calm, Appropriate Affect: Normal Speech Pattern: Clear, Appropriate - Laboratory and Diagnostics Result Diagrams: 08/15/20 05:29 08/15/20 05:29 Labs: Laboratory WBC 8.6 X10^3/uL (3.6-10.0) 08/15/20 05:29 RBC 3.52 X10^6/uL (3.5-5.4) 08/15/20 05:29 Hgb 11.6 g/dL (12.0-16.0) L 08/15/20 05:29 Hct 33.7 % (36.0-47.0) L 08/15/20 05:29 MCV 95.8 fL (80.0-100.0) 08/15/20 05:29 MCH 33.1 pg (27.0-34.0) 08/15/20 05:29 MCHC 34.6 g/dL (33.0-35.0) 08/15/20 05:29 RDW 13.3 % (11.6-16.5) 08/15/20 05:29 Plt Count 214 X10^3/uL (150.0-450.0) 08/15/20 05:29 MPV 8.3 fL (7.4-11.0) 08/15/20 05:29 Neut % (Auto) 65.2 % (42.0-75.0) 08/15/20 05:29 Lymph % (Auto) 25.7 % (21.0-51.0) 08/15/20 05:29 [place] % (Auto) 7.4 % (0.0-13.0) 08/15/20 05:29 Eos % (Auto) 1.3 % (0.9-2.9) 08/15/20 05:29 Baso % (Auto) 0.4 % (0.2-1.0) 08/15/20 05:29 Neut # (Auto) 5.6 x10^3/uL (2.2-4.8) H 08/15/20 05:29 Lymph # (Auto) 2.2 X10^3/uL (1.3-2.9) 08/15/20 05:29 [place] # (Auto) 0.6 x10^3/uL (0.3-0.8) 08/15/20 05:29 Eos # (Auto) 0.1 x10^3/uL (0.0-0.2) 08/15/20 05:29 Baso # (Auto) 0.0 X10^3/uL (0.0-0.1) 08/15/20 05:29 Absolute Nucleated RBC 0.0 /100WBC 08/15/20 05:29 Sodium 139 mmol/L (136-145) 08/15/20 05:29 Corrected Sodium 139 mmol/L (136-145) 08/15/20 05:29 Potassium 3.8 mmol/L (3.5-5.1) 08/15/20 05:29 Chloride 105 mmol/L (98-107) 08/15/20 05:29 Carbon Dioxide 27.0 mmol/L (21-32) 08/15/20 05:29 BUN 7 mg/dL (7-18) 08/15/20 05:29 Creatinine 1.03 mg/dL (0.55-1.02) H 08/15/20 05:29 Est GFR (MDRD) Af Amer > 60 (>60) 08/15/20 05:29 Est GFR (MDRD) Non-Af 57 (>60) L 08/15/20 05:29 Glucose 115 mg/dL (65-99) H 08/15/20 05:29 Calcium 8.4 mg/dL (8.5-10.1) L 08/15/20 05:29 Corrected Calcium 9.4 mg/dL (8.5-10.1) 08/15/20 05:29 Total Bilirubin 0.40 mg/dL (0.2-1.0) 08/15/20 05:29 AST 26 Units/L (15-37) 08/15/20 05:29 ALT 30 Units/L (12-78) 08/15/20 05:29 Alkaline Phosphatase 57 Units/L (46-116) 08/15/20 05:29 Total Protein 6.1 g/dL (6.4-8.2) L 08/15/20 05:29 Albumin 2.8 g/dL (3.4-5.0) L 08/15/20 05:29 Globulin 3.3 g/dL (2.5-4.5) 08/15/20 05:29 Albumin/Globulin Ratio 0.8 Ratio (1.1-2.1) L 08/15/20 05:29 Tissue Pathology To follow 08/13/20 11:00 - Assessment and Plan 1: recurrent diverticulitis . s/p laparotomy , lysis of abdominal and pelvic adhesions . resection of recto sigmoid . same PO care ,. OOB . full liquid diet ..
[2020-08-15] MEDS: ZESTRIL TAB 10 MG PO SCH (09:09)
[2020-08-15] MEDS: LOVENOX INJ 40 MG SYR SC SCH (09:09)
[2020-08-15] MEDS: LEVAQUIN PREMIX IV 500 MG 500 MG/100 ML BAG IV SCH (09:09)
[2020-08-15] MEDS: PROTONIX INJ 40 MG VIAL IVP SCH (09:09)
[2020-08-16 06:10] LABS: BASOPHILS % (AUTO) 0.4 % (0.2-1.0); EOSINOPHILS # (AUTO) 0.3 x10^3/uL (0.0-0.2); EOSINOPHILS % (AUTO) 3.7 % (0.9-2.9); HEMATOCRIT 34.4 % (36.0-47.0); HEMOGLOBIN 12.1 g/dL (12.0-16.0); LYMPHOCYTES # (AUTO) 2.2 X10^3/uL (1.3-2.9); LYMPHOCYTES % (AUTO) 32.7 % (21.0-51.0); MEAN CORPUSCULAR HEMOGLOBIN 33.7 pg (27.0-34.0); MEAN CORPUSCULAR HGB CONC 35.2 g/dL (33.0-35.0); MEAN CORPUSCULAR VOLUME 95.7 fL (80.0-100.0); MONOCYTES # (AUTO) 0.6 x10^3/uL (0.3-0.8); MONOCYTES % (AUTO) 9.1 % (0.0-13.0); NEUTROPHILS # (AUTO) 3.7 x10^3/uL (2.2-4.8); NEUTROPHILS % (AUTO) 54.1 % (42.0-75.0); PLATELET COUNT 207 X10^3/uL (150.0-450.0); RED BLOOD COUNT 3.59 X10^6/uL (3.5-5.4); RED CELL DISTRIBUTION WIDTH 13.5 % (11.6-16.5); WHITE BLOOD COUNT 6.9 X10^3/uL (3.6-10.0)
[2020-08-16 06:22] LABS: ALANINE AMINOTRANSFERASE 27 Units/L (12-78); ALBUMIN 2.8 g/dL (3.4-5.0); ALKALINE PHOSPHATASE 58 Units/L (46-116); ASPARTATE AMINO TRANSFERASE 22 Units/L (15-37); BLOOD UREA NITROGEN 7 mg/dL (7-18); CALCIUM 8.9 mg/dL (8.5-10.1); CARBON DIOXIDE 29.5 mmol/L (21-32); CHLORIDE 106 mmol/L (98-107); COR CA(FOR HYPOALB) 9.9 mg/dL (8.5-10.1); CREATININE 0.92 mg/dL (0.55-1.02); SODIUM 140 mmol/L (136-145); TOTAL PROTEIN 6.1 g/dL (6.4-8.2); eGFR NON BLACK RACES > 60 (>60)
[2020-08-16] MEDS: ZESTRIL TAB 10 MG PO SCH (08:30)
[2020-08-16] MEDS: PERCOCET TAB 5/325 MG PO PRN (08:40)
--- NOTE | 2020-08-16 09:09 | PCM.PROG ---
Progress Note Progress Note for Day of Date of Exam: 08/16/20 Subjective Subjective: Pt is a 64 year old female past medical history of HTN, WILLY, CAD, POD#3 rectosigmoid resection with primary anastomosis. This morning she is sitting up in bed. She has been tolerating po intake. She still has J/P drain in place. Labs/imaging: Wbc 6.9, Hgb 12.1, Plt 207, Na 140, K 4.1, Creatinine 0.92, Glucose 99. Continue IVF D5 1/2NS@125ml/h, IV Levaquin, pain and nausea control. Pt home medications have been resumed and vitals have remained within normal limits and patient medically stable. General surgery following, follow up recommendations, otherwise continue to monitor. Past Medical Family Social History Past Med/Fam/Surg Hx: No changes since H&P Allergies: Allergies No Known Drug Allergies Allergy (Verified 02/03/18 07:30) Review of Systems ROS: No change since H&P Vital Signs and I&O's Vital Signs: Temperature 98.1 F Pulse Rate [Left Brachial] 80 Pulse Rate 72 Respiratory Rate 20 Blood Pressure [Left Arm] 128/67 Blood Pressure 102/59 O2 Sat by Pulse Oximetry 98 Intake and Output: Intake & Output 08/13/20 08/14/20 08/15/20 08/16/20 23:59 23:59 23:59 23:59 Intake Total 6613 / 6613 3238 / 3238 4348 / 4348 100 / 100 Output Total 4330 / 4330 2690 / 2690 150 / 150 20 / 20 Balance 2283 / 2283 548 / 548 4198 / 4198 80 / 80 Physical Exam Oriented: Normal Eyes: Normal Ear: Normal Nose: Normal Throat: Normal Respiratory: Normal Cardiovascular: Normal : Normal Auscultation: Bowel Sounds: Normal Tenderness: Normal Skin: Normal Musculoskeletal: Normal Psychiatric: Normal Mood Description: Calm and Appropriate Affect: Normal Speech Pattern: Clear and Appropriate Laboratory and Diagnostics Result Diagrams: 08/16/20 05:35 08/16/20 05:35 Labs: Laboratory WBC 6.9 X10^3/uL (3.6-10.0) 08/16/20 05:35 RBC 3.59 X10^6/uL (3.5-5.4) 08/16/20 05:35 Hgb 12.1 g/dL (12.0-16.0) 08/16/20 05:35 Hct 34.4 % (36.0-47.0) L 08/16/20 05:35 MCV 95.7 fL (80.0-100.0) 08/16/20 05:35 MCH 33.7 pg (27.0-34.0) 08/16/20 05:35 MCHC 35.2 g/dL (33.0-35.0) H 08/16/20 05:35 RDW 13.5 % (11.6-16.5) 08/16/20 05:35 Plt Count 207 X10^3/uL (150.0-450.0) 08/16/20 05:35 MPV 8.0 fL (7.4-11.0) 08/16/20 05:35 Neut % (Auto) 54.1 % (42.0-75.0) 08/16/20 05:35 Lymph % (Auto) 32.7 % (21.0-51.0) 08/16/20 05:35 [place] % (Auto) 9.1 % (0.0-13.0) 08/16/20 05:35 Eos % (Auto) 3.7 % (0.9-2.9) H 08/16/20 05:35 Baso % (Auto) 0.4 % (0.2-1.0) 08/16/20 05:35 Neut # (Auto) 3.7 x10^3/uL (2.2-4.8) 08/16/20 05:35 Lymph # (Auto) 2.2 X10^3/uL (1.3-2.9) 08/16/20 05:35 [place] # (Auto) 0.6 x10^3/uL (0.3-0.8) 08/16/20 05:35 Eos # (Auto) 0.3 x10^3/uL (0.0-0.2) H 08/16/20 05:35 Baso # (Auto) 0.0 X10^3/uL (0.0-0.1) 08/16/20 05:35 Absolute Nucleated RBC 0.0 /100WBC 08/16/20 05:35 Sodium 140 mmol/L (136-145) 08/16/20 05:35 Corrected Sodium TNP 08/16/20 05:35 Potassium 4.1 mmol/L (3.5-5.1) 08/16/20 05:35 Chloride 106 mmol/L (98-107) 08/16/20 05:35 Carbon Dioxide 29.5 mmol/L (21-32) 08/16/20 05:35 BUN 7 mg/dL (7-18) 08/16/20 05:35 Creatinine 0.92 mg/dL (0.55-1.02) 08/16/20 05:35 Est GFR (MDRD) Af Amer > 60 (>60) 08/16/20 05:35 Est GFR (MDRD) Non-Af > 60 (>60) 08/16/20 05:35 Glucose 99 mg/dL (65-99) 08/16/20 05:35 Calcium 8.9 mg/dL (8.5-10.1) 08/16/20 05:35 Corrected Calcium 9.9 mg/dL (8.5-10.1) 08/16/20 05:35 Total Bilirubin 0.40 mg/dL (0.2-1.0) 08/16/20 05:35 AST 22 Units/L (15-37) 08/16/20 05:35 ALT 27 Units/L (12-78) 08/16/20 05:35 Alkaline Phosphatase 58 Units/L (46-116) 08/16/20 05:35 Total Protein 6.1 g/dL (6.4-8.2) L 08/16/20 05:35 Albumin 2.8 g/dL (3.4-5.0) L 08/16/20 05:35 Globulin 3.3 g/dL (2.5-4.5) 08/16/20 05:35 Albumin/Globulin Ratio 0.8 Ratio (1.1-2.1) L 08/16/20 05:35 Tissue Pathology To follow 08/13/20 11:00 Plan (1) Status post colon resection: Status: Acute (2) Hypertension: Status: Acute (3) WILLY (generalized anxiety disorder): Status: Acute (4) Hyperlipidemia: Status: Acute
[2020-08-16] MEDS: LOVENOX INJ 40 MG SYR SC SCH (09:38)
[2020-08-16] MEDS: LEVAQUIN PREMIX IV 500 MG 500 MG/100 ML BAG IV SCH (09:39)
[2020-08-16] MEDS: PROTONIX INJ 40 MG VIAL IVP SCH (09:40)
[2020-08-16 12:53] VITALS: BP 125/70
== END 2020-08-16 15:15 | disposition home or self-care (01) | DRG 331 ==
LOC: MED/SURG 07:16
PROVIDERS: ADMIT Surgery; ATTEND Surgery